=== PATIENT | male | born 1950 | race Caucasian/White ===

== ENCOUNTER → 2018-02-08 11:35 | Outpatient (CLI) | payer MEDICARE, MEDICAID, SELFPAY ==
[2018-02-08 13:24] LABS: Alanine Aminotransferase 41 U/L (12-78); Albumin Level 3.7 gm/dL (3.4-5.0); Albumin/Globulin Ratio 1.3 (1.1-1.8); Alkaline Phosphatase 82 U/L (46-116); Anion Gap 12.6 mEq/L (5-15); Aspartate Amino Transferase 23 U/L (15-37); Bilirubin,Total 0.5 mg/dL (0.2-1.0); Blood Urea Nitrogen 17 mg/dL (7-18); Calcium 9.1 mg/dL (8.5-10.1); Carbon Dioxide 25 mmol/L (21.0-32.0); Chloride 108 mmol/L (98-107); Cholesterol 171 mg/dL (140-200); Creatinine,Serum 1.19 mg/dL (0.70-1.30); Estimated Glomerular Filt Rate 61 ml/min (>60); GFR (African American) 74 ML/MIN (>60); Globulin 2.9 gm/dl (1.3-3.2); Glucose 109 mg/dL (74-106); HDL Cholesterol 34 mg/dL (27-67); LDL Cholesterol 101 mg/dL (0-130); Potassium 4.6 mmoL/L (3.5-5.1); Sodium 141 mmol/L (136-145); Thyroid Stimulating Hormone 4.73 uIU/ml (0.358-3.740); Total Protein,Serum 6.6 gm/dL (6.4-8.2); Triglycerides 179 mg/dL (30-200); VLDL Cholesterol 36 mg/dL (0-40)
== END ==
PROVIDERS: Visit Provider Physician Assistant
DX: I25.10 Atherosclerotic heart disease of native coronary artery without angina pectoris (principal); E78.5 Hyperlipidemia, unspecified
CPT/HCPCS: 36415; 80053; 80061; 84443

== ENCOUNTER → 2018-02-17 13:42 | Outpatient (CLI) | payer MEDICARE, MEDICAID, SELFPAY ==
--- NOTE | 2018-02-17 13:51 | CI_ITS ---
Cerebrovascular Exam Indications: 433.10 Occlusion/stenosis of carotid artery without cerebral infarction. IMPRESSIONS 1. The bilateral vertebral arteries are patent with normal antegrade flow. 2. Study suggests 20-49% stenosis involving the right internal carotid artery and the left internal carotid artery. No change from the study of 31-Dec-2016. Carotid duplex study. Complete study and Doppler flow study including spectral analysis, color and daugherty scale imaging. Location: Vascular laboratory. Patient status: Outpatient. Tables: Arterial flow: + +--------+--------+ Location V sys V ed + +--------+--------+ Right CCA - proximal 76.2cm/s 21.2cm/s + +--------+--------+ Right CCA - distal 85.6cm/s 22cm/s + +--------+--------+ Right ECA 94.3cm/s -------- + +--------+--------+ Right ICA - proximal 116cm/s 27.5cm/s + +--------+--------+ Right ICA - mid 105cm/s 36.9cm/s + +--------+--------+ Right ICA - distal 104cm/s 25.9cm/s + +--------+--------+ Right vertebral 68.4cm/s -------- + +--------+--------+ Left CCA - proximal 94.3cm/s 18.9cm/s + +--------+--------+ Left CCA - distal 102cm/s 19.6cm/s + +--------+--------+ Left ECA 78.6cm/s -------- + +--------+--------+ Left ICA - proximal 111cm/s 29.9cm/s + +--------+--------+ Left ICA - mid 95.1cm/s 26.7cm/s + +--------+--------+ Left ICA - distal 114cm/s 33cm/s + +--------+--------+ Left vertebral 66.8cm/s -------- + +--------+--------+ Velocity ratios: + + + + + + Right, V sys Right, V ed Left, V sys Left, V ed + + + + + + Max ICA/dist CCA 1.36 1.68 1.12 1.68 + + + + + + (Report amended ) Electronically signed by: German Morin [id number]
== END ==
PROVIDERS: Family Provider Emergency Medicine; PCP Emergency Medicine; Visit Provider Physician Assistant
DX: I65.23 Occlusion and stenosis of bilateral carotid arteries (principal)
CPT/HCPCS: 93880

== ENCOUNTER → 2018-02-28 09:48 | Outpatient (REF) | payer MEDICARE, MEDICAID, SELFPAY | LOC: LAB 09:48 | PROVIDERS: Visit Provider Emergency Medicine | DX: E78.5 Hyperlipidemia, unspecified (principal); I51.9 Heart disease, unspecified | CPT/HCPCS: 84439; 84443 ==

== ENCOUNTER → 2018-05-22 10:43 | Outpatient (CLI) | payer MEDICARE, MEDICAID, SELFPAY ==
[2018-05-22 11:34] LABS: Alanine Aminotransferase 44 U/L (12-78); Albumin Level 3.8 gm/dL (3.4-5.0); Albumin/Globulin Ratio 1.3 (1.1-1.8); Alkaline Phosphatase 92 U/L (46-116); Anion Gap 14.4 mEq/L (5-15); Aspartate Amino Transferase 21 U/L (15-37); Bilirubin,Total 0.6 mg/dL (0.2-1.0); Blood Urea Nitrogen 18 mg/dL (7-18); Calcium 9.2 mg/dL (8.5-10.1); Carbon Dioxide 23 mmol/L (21.0-32.0); Chloride 108 mmol/L (98-107); Chol/HDL Ratio 4.4 (1-3.5); Cholesterol 155 mg/dL (140-200); Creatinine,Serum 1.14 mg/dL (0.70-1.30); Estimated Glomerular Filt Rate 64 ml/min (>60); GFR (African American) 78 ML/MIN (>60); Glucose 123 mg/dL (74-106); HDL Cholesterol 35 mg/dL (27-67); LDL Cholesterol 88 mg/dL (0-130); Potassium 4.4 mmoL/L (3.5-5.1); Sodium 141 mmol/L (136-145); Total Protein,Serum 6.8 gm/dL (6.4-8.2); Triglycerides 158 mg/dL (30-200); VLDL Cholesterol 32 mg/dL (0-40)
== END ==
PROVIDERS: PCP Emergency Medicine; Visit Provider Physician Assistant
DX: I25.10 Atherosclerotic heart disease of native coronary artery without angina pectoris (principal); E78.5 Hyperlipidemia, unspecified
CPT/HCPCS: 36415; 80053; 80061

== ENCOUNTER → 2019-11-05 14:38 | Outpatient (POV) | payer MEDICARE, MEDICAID, SELFPAY | PROVIDERS: PCP Emergency Medicine; Visit Provider Specialist | DX: G56.03 Carpal tunnel syndrome, bilateral upper limbs (principal); R20.2 Paresthesia of skin | CPT/HCPCS: 95886; 95909 ==

== ENCOUNTER → 2019-11-12 09:56 | Outpatient (CLI) | payer MEDICARE, MEDICAID, SELFPAY ==
--- NOTE | 2019-11-12 10:01 | XR_ITS ---
PROCEDURE: XR WRIST LT MIN 3V CLINICAL INDICATION: wrist pain COMPARISON: No exams were available for comparison FINDINGS: There is no acute fracture or dislocation. Mild osteoarthritis is seen at the trapezio scaphoid joint. Otherwise joint spaces are relatively preserved. A 2 millimeter metallic density foreign body is seen in the dorsal soft tissues projecting adjacent to the proximal base of the 2nd metacarpal. 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 Dictated by: Jesus Vasquez 11/12/2019 11:30 Electronically signed by Jesus Vasquez in [facility] 11/12/2019 11:30
--- NOTE | 2019-11-12 10:01 | XR_ITS ---
PROCEDURE: XR WRIST RT MIN 3V CLINICAL INDICATION: wrist pain COMPARISON: No exams were available for comparison FINDINGS: There is no acute fracture or dislocation. There is mild osteoarthritis greatest at the 1st metacarpal-trapezium and trapezium scaphoid joints. A degenerative subchondral cyst in the scaphoid measures 6.1 millimeters. IMPRESSION: Degenerative findings with no acute bone pathology. Dictated by: Jesus Vasquez 11/12/2019 11:32 Electronically signed by Jesus Vasquez in [facility] 11/12/2019 11:32
== END ==
PROVIDERS: PCP Emergency Medicine; Visit Provider Orthopaedic Surgery
DX: G56.03 Carpal tunnel syndrome, bilateral upper limbs (principal)
CPT/HCPCS: 73110

== ENCOUNTER 2023-01-19 22:42 | Emergency (ER) | payer MEDICARE, MEDICAID, SELFPAY ==
--- NOTE | 2023-01-19 22:43 | ECG_ITS ---
APPROVED REPORT Exam: Resting ECG HR:80 bpm ECG Measurements Heart Rate 80 AXES VA 138 P 73 QRSd 86 QRS 83 QT 366 T 97 QTc 401 Conclusion SINUS RHYTHM SEPTAL MYOCARDIAL INFARCTION , OF INDETERMINATE AGE [40+ ms Q WAVE IN V1/V2] MODERATE T-WAVE ABNORMALITY, CONSIDER LATERAL ISCHEMIA [-0.1+ mV T-WAVE IN I/aVL/V5/V6] ABNORMAL ECG UNCONFIRMED REPORT Electronically signed by : Bob Hi MD 01/20/2023 09:26:09
[2023-01-19 22:49] VITALS: BP 168/85; PULSE 83; RESP 22; TEMP 36.4; O2SAT 97; BMI 32.9
[2023-01-19 22:54] VITALS: BMI 32.9
--- NOTE | 2023-01-19 22:55 | XR_ITS ---
PROCEDURE INFORMATION: Exam: XR Chest Exam date and time: 01/19/2023 11:04 PM Age: 72 years old Clinical indication: Sternal or substernal pain; Prior surgery; Surgery date: 6+ months; Surgery type: Open heart; Additional info: Cp( TECHNIQUE: Imaging protocol: Radiologic exam of the chest. Views: 1 view. Total images: 1 COMPARISON: No relevant prior studies available. FINDINGS: Tubes, catheters and devices: EKG leads are present. Lungs: Poor lung expansion with crowded markings and bibasilar atelectasis. No focal airspace consolidation, vascular congestion or interstitial edema. Pleural spaces: Unremarkable. No pleural effusion. No pneumothorax. Heart/Mediastinum: Unremarkable. No cardiomegaly. No mediastinal widening or hilar enlargement. Bones/joints: Status post median sternotomy. Moderate degenerative changes bilateral AC joints. Other findings: Lordotic positioning. IMPRESSION: 1. No radiographically acute cardiopulmonary process. 2. Poor lung expansion with mild bibasilar atelectasis.
[2023-01-19 23:00] VITALS: BP 129/72; PULSE 78; RESP 13; O2SAT 97
[2023-01-19 23:05] LABS: Basophils # 0.1 K/mm3 (0-0.2); Basophils % 0.8 % (0.1-2.0); Chloride 103 mmol/L (98-107); Eosinophils # 0.2 K/mm3 (0.0-0.4); Eosinophils % 2.4 % (0.1-12.0); Hematocrit 47.3 % (42.0-52.0); Hemoglobin 15.6 g/dL (14.1-18.0); Lymphocytes # 2.6 K/mm3 (0.7-4.5); Lymphocytes % 30.6 % (10-50); Mean Corpuscular HGB Conc 32.9 g/dL (31.8-35.4); Mean Corpuscular Hemoglobin 29.1 pg (27.0-31.2); Mean Corpuscular Volume 88.3 fl (80-94); Mean Platelet Volume 7.4 fl (7.4-10.4); Monocytes # 0.7 K/mm3 (0.1-1.0); Monocytes % 7.9 % (1.7-9.3); Neutrophils % 58.2 % (37.0-80.0); Platelet Count 205 K/mm3 (142-424); Potassium 3.8 mmoL/L (3.5-5.1); Red Blood Count 5.36 M/mm3 (4.60-6.20); Red Cell Distribution Width 14.7 % (11.5-17.5); Sodium 138 mmol/L (136-145); White Blood Count 8.6 K/mm3 (4.8-10.8)
--- NOTE | 2023-01-19 23:07 | PC.NURSE ---
RAD at for CXR
[2023-01-19 23:08] LABS: Blood Urea Nitrogen 15 mg/dl (9-20); Creatinine Clearance Estimated 79 mL/min (50-200); Estimated Glomerular Filt Rate 66 ml/min (>60); Ethyl Alcohol 234 mg/dl (0-10); GFR (African American) 80 ML/MIN (>60)
[2023-01-19 23:09] LABS: Anion Gap 20.8 mEq/L (5-15); Carbon Dioxide 18 mmol/L (22.0-30.0); Glucose 118 mg/dl (74-100)
[2023-01-19 23:21] LABS: Troponin I < 0.01 ng/ml (0.00-0.034)
--- NOTE | 2023-01-19 23:24 | PC.NURSE ---
PT and daughter at BS
--- NOTE | 2023-01-19 23:24 | PC.NURSE ---
pt's and daughter at bedside updated on pt's pending labs and imaging
[2023-01-19 23:31] VITALS: BP 120/62; RESP 13; O2SAT 99
[2023-01-20] VITALS: BP 133/82; RESP 16; O2SAT 96
--- NOTE | 2023-01-20 00:17 | HMH.EDGENADL ---
Discharge Plan Disposition Patient Disposition: Home, Self-Care Condition: Good Prescriptions Prescriptions: No Action metoprolol tartrate 25 mg tablet 25 mg PO BID lisinopril 2.5 mg tablet 2.5 mg PO DAILY aspirin [Adult Low Dose Aspirin] 81 mg tablet,delayed release (DR/EC) 81 mg PO DAILY clopidogrel 75 mg tablet 75 mg PO DAILY atorvastatin 40 mg tablet 40 mg PO PM ezetimibe 10 mg tablet 10 mg PO DAILY Referrals Follow up/Referrals: Anand Nava MD [Primary Care Provider] - See instructions Clinical Impressions Clinical Impression: Chest pain, Acute alcohol intoxication Discharge ED Provider: Wally Johnson General Adult HPI General Chief complaint: Chest Pain Stated complaint: Chest Pain Time Seen by Provider: 01/19/23 22:52 Mode of Arrival: Ambulatory Source of Information: Patient Limitations: No Limitations Description of Symptoms (Recalled from ER Triage Doc. by RN): pt c/o L sided chest pain starting minutes prior to arrival. pt denies radiation of pain. pt is SOA and very anxious. pt states he has had a lot of beer. History of Present Illness HPI narrative: 72yo M presents to the ER secondary to left-sided chest pain that radiates to his left arm. Patient reports a history of CAD s/p quadruple bypass. Patient is clearly altered on initial evaluation and a poor historian. Patient repeatedly states he wants to leave but then states he still having chest pain. Unable to say when the chest pain started exactly. Unable to provide any other pertinent medical history at time of arrival. Related Data Home Medications Medication Instructions Recorded Confirmed aspirin 81 mg tablet,delayed 81 mg PO DAILY Heart disease 02/28/18 01/19/23 release (Adult Low Dose Aspirin) atorvastatin 40 mg tablet 40 mg PO PM High cholesterol 02/28/18 01/19/23 clopidogrel 75 mg tablet 75 mg PO DAILY Blood thinner 02/28/18 01/19/23 ezetimibe 10 mg tablet 10 mg PO DAILY High cholesterol 02/28/18 01/19/23 lisinopril 2.5 mg tablet 2.5 mg PO DAILY high blood 10/22/19 01/19/23 metoprolol tartrate 25 mg tablet 25 mg PO BID High blood pressure 10/22/19 01/19/23 Allergies Allergy/AdvReac Type Severity Reaction Status Date / Time No Known Allergies Allergy Unknown Verified 01/19/23 22:57 PFSH PFSH Disclaimer: The information contained in this section may have been updated after the patient was seen, as this information can be updated by other users. Medical History Hypothyroidism (~03/01/18) Social History Smoking Status: Former smoker alcohol intake: current substance use type: denies use current occupational status: retired Travel in the last 8 weeks: None ROS Obtained: Yes Systems reviewed as appropriate & no additional complaints except as documented Physical Exam General General appearance: alert, anxious and other (Altered) Comment: Smells of alcohol Head Head exam: atraumatic Eye Eye exam: Present miosis ENT ENT exam: Present mucous membranes moist Neck Neck exam: Present trachea midline Chest Chest inspection: Present normal inspection Respiratory Respiratory exam: Present normal lung sounds bilaterally; Absent respiratory distress Cardiovascular Cardiovascular exam: Present regular rate, normal rhythm and normal heart sounds Abdominal Exam Abdominal exam: Present soft and normal bowel sounds; Absent distention or tenderness Neurological Exam Neurological exam: Present alert and other (Altered); Absent oriented X3 Psychiatric Psychiatric exam: Present agitated and anxious Skin Skin exam: Present warm and dry Medical Decision Making Medical Records Medical records reviewed: Yes I reviewed the patient's medical records. Michi Inquiry Pt receiving controlled substance: No Vital Signs: 01/19/23 22:49 01/19/23 23:00 01/19/23 23:31 T
[2023-01-20 00:30] VITALS: BP 132/77; RESP 21; O2SAT 95
--- NOTE | 2023-01-20 00:57 | PC.NURSE ---
Pt resting with eyes closed and audibly snoring
[2023-01-20 01:26] LABS: Troponin I < 0.01 ng/ml (0.00-0.034)
[2023-01-20 01:32] VITALS: BP 125/74; PULSE 71; RESP 16; TEMP 36.6
[2023-01-20 02:24] LABS: Amphetamine/Metha Screen,Urine Negative ng/ml (<1000); Barbiturates Screen,Urine Negative ng/ml (<200)
[2023-01-20 02:25] LABS: Benzodiazepines Screen,Urine Negative ng/ml (<200)
[2023-01-20 02:26] LABS: Cannabinoid Screen,Urine Negative ng/ml (<50); Cocaine Screen,Urine Negative ng/ml (<300)
[2023-01-20 02:27] LABS: Methadone Screen,Urine Negative ng/ml (<300); Phencyclidine Screen,Urine Negative ng/ml (<25)
[2023-01-20 02:29] LABS: Opiate Screen,Urine Negative ng/ml (<300)
== END 2023-01-20 01:41 | disposition home or self-care (01) ==
PROVIDERS: Emergency Provider Family Medicine; PCP Emergency Medicine
DX: R07.9 Chest pain, unspecified (principal); M79.602 Pain in left arm; R06.02 Shortness of breath; I25.10 Atherosclerotic heart disease of native coronary artery without angina pectoris; F10.929 Alcohol use, unspecified with intoxication, unspecified; Z87.891 Personal history of nicotine dependence
CPT/HCPCS: 71045; 80048; 80305; 84484; 85025; 93005; 93041; 96361; 96374; 96375; 99285

== ENCOUNTER → 2023-04-13 23:16 | Outpatient (CLI) | payer MEDICARE, MEDICAID, SELFPAY | PROVIDERS: PCP Nurse Practitioner Family; Visit Provider Nurse Practitioner Family | DX: N39.0 Urinary tract infection, site not specified (principal) | CPT/HCPCS: 87086 ==

== ENCOUNTER → 2023-04-22 09:42 | Outpatient (CLI) | payer MEDICARE, SELFPAY | LOC: RT 09:43 | PROVIDERS: PCP Nurse Practitioner Family; Visit Provider Nurse Practitioner Family | DX: R06.02 Shortness of breath (principal); F17.211 Nicotine dependence, cigarettes, in remission | CPT/HCPCS: 94060; 94618; 94640; 94727; 94729 ==

== ENCOUNTER 2023-08-22 11:10 | Emergency (ER) | payer SELFPAY ==
[2023-08-22] VITALS (14 sets, daily range): BP systolic 116–229; BP diastolic 60–116; PULSE 69–87; RESP 11–25; TEMP 36.4–36.6; O2SAT 93–99; BMI 32.5; BMI 32.4
--- NOTE | 2023-08-22 11:16 | ECG_ITS ---
APPROVED REPORT Exam: Resting ECG HR:89 bpm ECG Measurements Heart Rate 89 AXES MN 109 P 41 QRSd 81 QRS 76 QT 361 T 90 QTc 408 Conclusion SINUS RHYTHM WITH SHORT MN INTERVAL NONSPECIFIC ST & T-WAVE ABNORMALITY BORDERLINE ECG UNCONFIRMED REPORT Electronically signed by : Bob Hi MD 08/22/2023 17:47:01
--- NOTE | 2023-08-22 11:27 | XR_ITS ---
FINAL REPORT CLINICAL HISTORY: RIB PAIN COMPARISON: 01/19/2023 FINDINGS: 2 views of the chest were obtained . The heart is normal in size. Patient is status post median sternotomy. The mediastinum is within normal limits. The lungs are clear. There is no pneumothorax. Osseous structures are unremarkable. IMPRESSION: No acute cardiopulmonary process. Reviewed, Interpreted and Dictated by Kareem Jalloh III, MD Transcribed by Ann Marie Diaz Authenticated and [facility]
--- NOTE | 2023-08-22 11:32 | PC.NURSE ---
DR LICONA AT BEDSIDE
--- NOTE | 2023-08-22 11:35 | ED_ITS ---
Discharge Plan Disposition Patient Disposition: Home, Self-Care Prescriptions Prescriptions: New valacyclovir 1 gram tablet 1,000 mg PO Q8H 10 Days Qty: 30 0RF No Action metoprolol tartrate 25 mg tablet 25 mg PO BID lisinopril 2.5 mg tablet 2.5 mg PO DAILY prednisone 20 mg tablet 20 mg PO BID 5 Days Qty: 10 0RF cyclobenzaprine 10 mg tablet 10 mg PO TID PRN (Reason: muscle spasm) Qty: 60 0RF fluticasone furoate-vilanterol [Breo Ellipta] 100-25 mcg/dose blister with device 1 inh inhalation DAILY Qty: 60 2RF albuterol sulfate 90 mcg/actuation HFA aerosol inhaler 2 puff inhalation Q4-6H PRN (Reason: shortness of breath or wheezing) Qty: 8.5 2RF aspirin [Adult Low Dose Aspirin] 81 mg tablet,delayed release (DR/EC) 81 mg PO DAILY clopidogrel 75 mg tablet 75 mg PO DAILY atorvastatin 40 mg tablet 40 mg PO PM ezetimibe 10 mg tablet 10 mg PO DAILY Referrals Follow up/Referrals: Ramsey Lucero DO [Primary Care Provider] - See instructions Activity Restrictions/Add. Instructions Additional Instructions/Restrictions: Call your family doctor to establish care for this visit to the emergency department and schedule follow-up within 48 hours to ensure improvement. If you have any worsening of your condition or any other concerning signs or symptoms, return to the emergency department or your primary care doctor for further evaluation. If rash appears in that area, begin taking valacyclovir for full 10-day course. Clinical Impressions Clinical Impression: Right-sided chest wall pain Discharge ED Provider: Jose Miranda General Adult HPI General Chief complaint: PAIN Stated complaint: STABBING PAIN UNDER RIGHT RIB AREA Time Seen by Provider: 08/22/23 11:20 Mode of Arrival: Wheelchair Source of Information: Patient Limitations: No Limitations Description of Symptoms (Recalled from ER Triage Doc. by RN): PT REPORTS ONGOING PAIN TO RIGHT RIBS, COUGHED THIS AM, FELT A POP PAIN WORSE THAN BEFORE. History of Present Illness HPI narrative: 73-year-old male history of CAD status post vessel CABG, on aspirin and Plavix, hypertension-Ghazal presenting with right-sided chest wall pain. Patient states that he was getting out of bed about an hour prior to arrival when he sat up, twisted and coughed all at the same time. Patient states that when he sat up, twisted, and coughed, he had immediate pain that was stabbing in his right lower chest wall/abdomen. Was immediately 8-10 out of 10, has not gotten any better or worse since that time. It is stabbing, made worse with direct pressure, made better with lying still. Does not radiate. Not associated with shortness of breath, substernal chest pain, nausea, vomiting, diaphoresis, or any other concerns. Is not taking anything for the pain. Related Data Home Medications Medication Instructions Recorded Confirmed aspirin 81 mg tablet,delayed 81 mg PO DAILY Heart disease 02/28/18 04/13/23 release (Adult Low Dose Aspirin) atorvastatin 40 mg tablet 40 mg PO PM High cholesterol 02/28/18 04/13/23 clopidogrel 75 mg tablet 75 mg PO DAILY Blood thinner 02/28/18 04/13/23 ezetimibe 10 mg tablet 10 mg PO DAILY High cholesterol 02/28/18 04/13/23 lisinopril 2.5 mg tablet 2.5 mg PO DAILY high blood 10/22/19 04/13/23 metoprolol tartrate 25 mg tablet 25 mg PO BID High blood pressure 10/22/19 04/13/23 Previous Rx's Medication Instructions Recorded albuterol sulfate 90 mcg/actuation 2 puff inhalation Q4-6H PRN 04/13/23 aerosol inhaler shortness of breath or wheezing #8.5 grams cyclobenzaprine 10 mg tablet 10 mg PO TID PRN muscle spasm #60 04/13/23 tabs fluticasone furoate 100 1 inh inhalation DAILY #60 ea 04/13/23 mcg-vilanterol 25 mcg/dose inhalation powder (Breo Ellipta) prednisone 20 mg tablet 20 mg PO BID 5 days #10 tabs 04/13/23 valacyclovir 1 gram tablet 1,000 mg PO Q8H 10 days #30 tabs 08/22/23 Allergies Allergy/AdvReac Type Severity Reaction Status Date / Time No Known Allergies Allergy Unknown Verified 04/13/23 13:03 [facility] Disclaimer: The information contained in this section may have been updated after the patient was seen, as this information can be updated by other users. Medical History Hypothyroidism (~03/01/18) Social History Smoking Status: Former smoker alcohol intake: current substance use type: denies use current occupational status: retired Travel in the last 8 weeks: None ROS Obtained: Yes All systems reviewed & no additional complaints except as documented Physical Exam General General appearance: alert and in distress (secondary to pain) Head Head exam: atraumatic and normocephalic Eye Eye exam: Present normal appearance, PERRL and EOMI ENT ENT exam: Present mucous membranes moist Neck Neck exam: Present normal inspection, full ROM and trachea midline Chest Chest inspection: Present tenderness (right lateral/lower chest wall pain overlying ribs) Respiratory Respiratory exam: Present normal lung sounds bilaterally; Absent respiratory distress, wheezes, stridor, accessory muscle use or prolonged expiratory phase Cardiovascular Cardiovascular exam: Present normal rhythm Abdominal Exam Abdominal exam: Present soft; Absent distention, tenderness, guarding, rebound or rigidity Extremities Exam Extremities exam: Absent edema Neurological Exam Neurological exam: Present alert, oriented X3, CN II-XII intact and normal gait; Absent motor sensory deficit Skin Skin exam: Present warm and dry; Absent diaphoresis or erythema Medical Decision Making Medical Records Medical records reviewed: Yes I reviewed the patient's medical records. Michi Inquiry Pt receiving controlled substance: No Michi was queried for this patient: No Vital Signs: 08/22/23 11:11 08/22/23 11:53 08/22/23 11:50 Temperature 97.6 F Temperature Source Oral Pulse Rate 87 Pulse Rate [Apical] 84 Respiratory Rate 20 21 Blood Pressure 229/116 H 154/78 H Blood Pressure [Right Arm] 229/115 H Blood Pressure Mean 100 Blood Pressure Mean [Right Arm] 153 Blood Pressure Source [Right Arm] Automatic Cuff Blood Pressure Position [Right Arm] Sitting 02 Sat by Pulse Oximetry 99 95 Oxygen Delivery Method Room Air Room Air 08/22/23 12:06 08/22/23 12:11 08/22/23 12:31 Temperature Temperature Source Pulse Rate 78 78 73 Pulse Rate [Apical] Respiratory Rate 20 20 23 Blood Pressure 184/73 H 144/67 H 116/68 Blood Pressure [Right Arm] Blood Pressure Mean 110 124 Blood Pressure Mean [Right Arm] Blood Pressure Source [Right Arm] Blood Pressure Position [Right Arm] 02 Sat by Pulse Oximetry 95 95 94 L Oxygen Delivery Method Room Air 08/22/23 13:01 08/22/23 13:30 08/22/23 14:02 Temperature Temperature Source Pulse Rate 73 74 71 Pulse Rate [Apical] Respiratory Rate 20 11 L 20 Blood Pressure 169/81 H 136/67 144/63 H Blood Pressure [Right Arm] Blood Pressure Mean Blood Pressure Mean [Right Arm] Blood Pressure Source [Right Arm] Blood Pressure Position [Right Arm] 02 Sat by Pulse Oximetry 96 93 L 93 L Oxygen Delivery Method Room Air Room Air Room Air Lab Data Lab Results 08/22/23 11:23: WBC 5.6, RBC 5.72, Hgb 17.2, Hct 51.7, MCV 90.5, MCH 30.0, MCHC 33.2, RDW 15.3, Plt Count 164, MPV 7.5, Neut % (Auto) 71.1, Lymph % (Auto) 18.4, [place] % (Auto) 7.2, Eos % (Auto) 2.4, Baso % (Auto) 0.9, Neut # (Auto) 4.0, Lymph # (Auto) 1.0, [place] # (Auto) 0.4, Eos # (Auto) 0.1, Baso # (Auto) 0.1, PT 12.2, INR 1.14 H, APTT 26.5, Sodium 139, Potassium 4.0, Chloride 102, Carbon Dioxide 28, Anion Gap 13.0, BUN 17, Creatinine 1.10, Estimated Creat Clear 77, Estimated GFR 66, Est GFR ( Amer) 80, Glucose 141 H, Calcium 9.3, Total Bilirubin 0.8, AST 42, ALT 36, Alkaline Phosphatase 86, Troponin I < 0.01, Total Protein 7.4, Albumin 4.4, Globulin 3.0, Albumin/Globulin Ratio 1.5 08/22/23 11:23 08/22/23 11:23 Orders (Tests/Meds): ED MEDICATIONS Generic Name Dose Route Start Last Admin Trade Name Freq PRN Reason Stop Dose Admin Sodium Chloride 10 ml 08/22/23 11:33 Sodium Chloride 0.9% 10ml Flush Syringe IV 09/21/23 11:32 NEEDED PRN Maintain IV Site Discontinued Medications Generic Name Dose Route Start Last Admin Trade Name Freq PRN Reason Stop Dose Admin Acetaminophen 1,000 mg 08/22/23 12:28 08/22/23 12:36 Acetaminophen 1,000mg/100ml Vial IV 08/22/23 12:29 1,000 mg ONCE ONE Administration Gabapentin 200 mg 08/22/23 12:28 08/22/23 12:36 Gabapentin 100mg Capsule PO 08/22/23 12:29 200 mg ONCE ONE Administration Hydromorphone HCl 0.5 mg 08/22/23 11:34 08/22/23 11:38 Hydromorphone 2mg/Ml Syringe IV 08/22/23 11:35 0.5 mg ONCE ONE Administration Hydromorphone HCl 0.5 mg 08/22/23 12:28 08/22/23 12:36 Hydromorphone 2mg/Ml Syringe IV 08/22/23 12:29 0.5 mg ONCE ONE Administration Ketorolac Tromethamine 15 mg 08/22/23 12:28 08/22/23 12:36 Ketorolac 30mg/Ml Vial IV 08/22/23 12:29 15 mg ONCE ONE Administration Labetalol HCl 10 mg 08/22/23 11:34 08/22/23 11:53 Labetalol 5mg/Ml 20ml Mdv IV 08/22/23 11:35 Not Given ONCE ONE Labetalol HCl 10 mg 08/22/23 12:00 08/22/23 11:53 Labetalol 20mg/4ml Syringe IV 08/22/23 12:01 10 mg ONCE ONE Administration ORDERS Category Date Time Status CT abdomen pelvis wo con Stat Cat Scan 08/22/23 12:[address] chest wo con Stat Cat Scan 08/22/23 12:28 Completed XR chest 2V Stat Exams 08/22/23 11:27 Completed Complete Blood Count Auto Diff Stat Lab 08/22/23 11:23 Completed Comprehensive Metabolic Panel Stat Lab 08/22/23 11:23 Completed PT INR [Prothrombin Time INR] Stat Lab 08/22/23 11:23 Completed PTT [Activated Partial Thrombo Time] Stat Lab 08/22/23 11:23 Completed Troponin I Q3H Lab 08/22/23 17:30 Ordered Troponin I Stat Lab 08/22/23 11:23 Completed ECG initial [place] Routine Y 08/22/23 11:16 Completed Medical Decision Narrative: 73-year-old male history of CAD status post vessel CABG, on aspirin and Plavix, hypertension-Ghazal presenting with right-sided chest wall pain. Patient states that he was getting out of bed about an hour prior to arrival when he sat up, twisted and coughed all at the same time. Patient states that when he sat up, twisted, and coughed, he had immediate pain that was stabbing in his right lower chest wall/abdomen. Was immediately 8-10 out of 10, has not gotten any better or worse since that time. It is stabbing, made worse with direct pressure, made better with lying still. Does not radiate. Not associated with shortness of breath, substernal chest pain, nausea, vomiting, diaphoresis, or any other concerns. Last bowel movement today, still passing gas, no history of abdominal surgeries. Is not taking anything for the pain. History was obtained via conversation with patient. On arrival, patient hemodynamically stable, alert, oriented x4, appropriate, GCS 15, moving all extremities spontaneously, pupils equal and reactive to light. Full physical exam performed and significant for patient lying on his left side and appears to be in pain. No acute distress. Right-sided chest wall tenderness with palpation of ribs. Patient hypertensive 230/115 Differential includes muscular strain, rib fracture, neuropathic pain, varicella-zoster, hypertensive emergency, ACS, DC, PE, pneumothorax, among others. Patient was given Dilaudid 0.5 mg IV, labetalol 10 mg IV for symptomatic management and correction of underlying abnormalities. Workup independently interpreted and significant for normal CBC. Nonactionable coagulation factors. Chemistry nonactionable, creatinine normal. CT chest, abdomen pelvis without contrast without concern for rib abnormality, pulmonary abnormality, intra-abdominal abnormality to explain patient's pain. See radiology read for full review of final results. Independent interpretation of EKG shows sinus rhythm [address] or T wave changes concerning for acute ischemia. AR, QRS, QT intervals within normal limits. On reevaluation, patient remains uncomfortable, given another 0.5 mg Dilaudid, Toradol, acetaminophen. Given patient presentation, workup, history, this most likely represents acute musculoskeletal strain, likely intercostal. Because patient at baseline without signs or symptoms of clinical decompensation, deemed appropriate for discharge. Results were relayed to patient who voiced understanding and were agreeable to outpatient management and follow up. At the time of discharge the patient was hemodynamically stable, tolerating PO, and mobilizing appropriately. Because patient has history of chickenpox, unable to rule out early shingles rash, so conversation was had with patient regarding meds sent to pharmacy, valacyclovir sent in case of rash appearance. Critical Care Critical Care Time Critical Care Time: No
[2023-08-22 11:36] LABS: Basophils # 0.1 K/mm3 (0-0.2); Basophils % 0.9 % (0.1-2.0); Eosinophils # 0.1 K/mm3 (0.0-0.4); Eosinophils % 2.4 % (0.1-12.0); Hematocrit 51.7 % (42.0-52.0); Hemoglobin 17.2 g/dL (14.1-18.0); Lymphocytes % 18.4 % (10-50); Mean Corpuscular HGB Conc 33.2 g/dL (31.8-35.4); Mean Corpuscular Volume 90.5 fl (80-94); Mean Platelet Volume 7.5 fl (7.4-10.4); Monocytes # 0.4 K/mm3 (0.1-1.0); Monocytes % 7.2 % (1.7-9.3); Neutrophils % 71.1 % (37.0-80.0); Platelet Count 164 K/mm3 (142-424); Red Blood Count 5.72 M/mm3 (4.60-6.20); Red Cell Distribution Width 15.3 % (11.5-17.5); White Blood Count 5.6 K/mm3 (4.8-10.8)
[2023-08-22] MEDS: HYDROMORPHONE 2MG/ML SYRINGE 0.5 MG IV ×2 (11:38→12:36)
[2023-08-22 11:47] LABS: Activated Partial Thrombo Time 26.5 seconds (22.8-30.6); INR 1.14 (0.9-1.1); Prothrombin Time 12.2 seconds (10.1-12.5)
[2023-08-22 11:51] LABS: Chloride 102 mmol/L (98-107); Sodium 139 mmol/L (136-145)
[2023-08-22] MEDS: LABETALOL 20MG/4ML SYRINGE 10 MG IV (11:53)
[2023-08-22 11:54] LABS: Alanine Aminotransferase 36 U/L (12-78); Albumin Level 4.4 g/dl (3.5-5.0); Albumin/Globulin Ratio 1.5 (1.1-1.8); Alkaline Phosphatase 86 U/L (38-126); Aspartate Amino Transferase 42 U/L (17-59); Bilirubin,Total 0.8 mg/dl (0.2-1.3); Blood Urea Nitrogen 17 mg/dl (9-20); Carbon Dioxide 28 mmol/L (22.0-30.0); Creatinine Clearance Estimated 77 mL/min (50-200); Estimated Glomerular Filt Rate 66 ml/min (>60); GFR (African American) 80 ML/MIN (>60); Total Protein,Serum 7.4 g/dl (6.3-8.2)
[2023-08-22 11:55] LABS: Calcium 9.3 mg/dl (8.4-10.2); Glucose 141 mg/dl (74-100)
--- NOTE | 2023-08-22 11:57 | PC.NURSE ---
Pt gone to RAD via wheelchair
--- NOTE | 2023-08-22 12:04 | PC.NURSE ---
Pt back from RAD
[2023-08-22 12:07] LABS: Troponin I < 0.01 ng/ml (0.00-0.034)
--- NOTE | 2023-08-22 12:25 | PC.NURSE ---
DR LICONA AT BEDSIDE TO UPDATE PT
--- NOTE | 2023-08-22 12:28 | CT_ITS ---
FINAL REPORT TECHNIQUE: Axial images were obtained from the lung apex to the mid abdomen by computed tomography. Coronal reformatted images were obtained. This study was performed with techniques to keep radiation doses as low as reasonably achievable, (ALARA). Individualized dose reduction techniques using automated exposure control or adjustment of mA and/or kV according to the patient''s size were employed. CLINICAL HISTORY: concern for R rib fracture vs stone COMPARISON: None FINDINGS: Prior median sternotomy. There is no axillary adenopathy. There is no hilar or mediastinal adenopathy. Heart size is normal. There is no pericardial or pleural effusion. There is a 2 mm right lower lobe nodule seen on image 55. There is mild emphysema and mild scarring. No chest wall abnormality identified. There is no pneumothorax. IMPRESSION: No acute process. No obvious rib fracture. Reviewed, Interpreted and Dictated by Kareem Jalloh III, MD Transcribed by Elly Macias Authenticated and [facility]
--- NOTE | 2023-08-22 12:28 | CT_ITS ---
FINAL REPORT CLINICAL HISTORY: concern for R rib fracture vs stone COMPARISON: None FINDINGS: Axial CT images of the abdomen and pelvis were obtained without intravenous contrast. Coronal reformatted images were also obtained.This study was performed with techniques to keep radiation doses as low as reasonably achievable (ALARA). Individualized dose reduction techniques using automated exposure control or adjustment of mA and/or kV according to the patient's size were employed. Abdomen: There is no evidence of renal stone or hydronephrosis.The liver, spleen and pancreas have an unremarkable, unenhanced appearance. No mass or adenopathy is seen. No inflammatory process is identified. There are moderate vascular calcifications. No obvious rib fracture identified. Pelvis: Images of the pelvis reveal no evidence of ureteral dilation or ureteral stone. There is descending and sigmoid diverticulosis. No mass or abnormal fluid collection is identified. There is an umbilical hernia containing fat. IMPRESSION: No renal or ureteral stone, or hydronephrosis. No obvious rib fracture identified. Reviewed, Interpreted and Dictated by Kareem Jalloh III, MD Transcribed by Elly Macias Authenticated and [facility]
[2023-08-22] MEDS: GABAPENTIN 100MG CAPSULE 200 MG PO (12:36)
[2023-08-22] MEDS: KETOROLAC 30MG/ML VIAL 15 MG IV (12:36)
[2023-08-22] MEDS: ACETAMINOPHEN 1,000MG/100ML VIAL 1000 MG IV (12:36)
--- NOTE | 2023-08-22 12:55 | PC.NURSE ---
PT RETURNED FROM CT
--- NOTE | 2023-08-22 14:15 | PC.NURSE ---
Dr. Miranda at BS to update pt on results and POC
--- NOTE | 2023-08-22 14:37 | PC.NURSE ---
No repeat trop per Dr. Miranda
--- NOTE | 2023-08-22 14:52 | PC.NURSE ---
DR LICONA AT BEDSIDE TO UPDATE PT ON POC FOR DISCHARGE
== END 2023-08-22 15:04 | disposition home or self-care (01) ==
PROVIDERS: Emergency Provider Emergency Medicine; PCP Internal Medicine
DX: R07.89 Other chest pain (principal); I25.10 Atherosclerotic heart disease of native coronary artery without angina pectoris; I10 Essential (primary) hypertension; Z79.02 Long term (current) use of antithrombotics/antiplatelets; Z79.82 Long term (current) use of aspirin; Z87.891 Personal history of nicotine dependence
CPT/HCPCS: 71046; 71250; 74176; 80053; 84484; 85025; 85610; 85730; 93005; 96374; 96375; 96376; 99285; J0131

== ENCOUNTER 2024-09-11 07:47 | Emergency (ER) | payer SELFPAY ==
[2024-09-11] VITALS (7 sets, daily range): BP systolic 120–168; BP diastolic 70–97; PULSE 72–83; RESP 15–18; TEMP 36.6–36.7; O2SAT 93–100; BMI 28.9
--- NOTE | 2024-09-11 08:01 | PC.NURSE ---
DR WYLIE AT BEDSIDE
--- NOTE | 2024-09-11 08:04 | CT_ITS ---
FINAL REPORT TECHNIQUE: Pre-and postcontrast images of the abdomen through the pelvis were performed by computed tomography. Extensive 3-D reconstruction images were performed. A CTA was performed. This study was performed with techniques to keep radiation doses as low as reasonably achievable (ALARA). Individualized dose reduction techniques using automated exposure control or adjustment of mA and/or kV according to the patient's size were employed. CLINICAL HISTORY: EtOH, fall, BT, ABD pain COMPARISON: None FINDINGS: ABDOMEN: The liver is homogeneous. The gallbladder is present. The spleen, pancreas, adrenal glands, and kidneys are unremarkable. There is a small fat-containing umbilical hernia. PELVIS: The appendix is not identified. There is moderate sigmoid diverticulosis without evidence of diverticulitis. The urinary bladder is normal in size and configuration. CTA: The bilateral renal arteries are adequately patent. Dense calcifications are noted at the origin of the celiac axis. Stenosis measures less than 50%. The SMA and JOHNSON are patent. Bilateral iliac artery stents are present. IMPRESSION: No acute abdominopelvic process identified. Reviewed, Interpreted and Dictated by Sahil Locke MD Transcribed by Elly Macias Authenticated and [facility]
--- NOTE | 2024-09-11 08:04 | CT_ITS ---
FINAL REPORT TECHNIQUE: The patient was injected with IV contrast. Axial images were obtained through the chest in a PE protocol. 3-D reconstruction images were also performed. Individualized dose reduction techniques using automated exposure control or adjustment of the MA and/or KV according to patient's size were employed. CLINICAL HISTORY: Right chest pain, prior CABG, fall COMPARISON: CT chest 08/22/2023 FINDINGS: Mediastinal vasculature is adequately opacified. No pulmonary artery filling defects are identified to suggest PE. There is no aortic dissection. There is no axillary adenopathy. There is no hilar or mediastinal adenopathy. There are multiple median sternotomy wires. The heart size is normal. There is no pericardial or pleural effusion. No suspicious infiltrate or nodule is identified. There are moderate changes of centrilobular emphysema. IMPRESSION: No pulmonary embolus or dissection. Reviewed, Interpreted and Dictated by Sahil Locke MD Transcribed by Elly Macias Authenticated and [facility]
--- NOTE | 2024-09-11 08:08 | ED_ITS ---
Discharge Plan Disposition Patient Disposition: Home, Self-Care Condition: Good Prescriptions Prescriptions: New methocarbamol 750 mg tablet 1,500 mg PO Q8H Qty: 30 0RF lidocaine 5 % adhesive patch,medicated See Rx Instructions .ROUTE .COMPLEX Qty: 15 0RF Rx Instructions: leave on most painful area for up to 12 hrs Continued methocarbamol 750 mg tablet 1,500 mg PO TID 5 Days Qty: 30 0RF lidocaine 5 % adhesive patch,medicated 1 patch topical DAILY Qty: 15 0RF Rx Instructions: leave on most painful area for up to 12 hrs No Action metoprolol tartrate 25 mg tablet 25 mg PO BID lisinopril 2.5 mg tablet 2.5 mg PO DAILY prednisone 20 mg tablet 20 mg PO BID 5 Days Qty: 10 0RF cyclobenzaprine 10 mg tablet 10 mg PO TID PRN (Reason: muscle spasm) Qty: 60 0RF fluticasone furoate-vilanterol [Breo Ellipta] 100-25 mcg/dose blister with device 1 inh inhalation DAILY Qty: 60 2RF albuterol sulfate 90 mcg/actuation HFA aerosol inhaler 2 puff inhalation Q4-6H PRN (Reason: shortness of breath or wheezing) Qty: 8.5 2RF aspirin [Adult Low Dose Aspirin] 81 mg tablet,delayed release (DR/EC) 81 mg PO DAILY clopidogrel 75 mg tablet 75 mg PO DAILY atorvastatin 40 mg tablet 40 mg PO PM ezetimibe 10 mg tablet 10 mg PO DAILY valacyclovir 1 gram tablet 1,000 mg PO Q8H 10 Days Qty: 30 0RF Referrals Follow up/Referrals: Ramsey Lucero DO [Primary Care Provider] - See instructions Activity Restrictions/Add. Instructions Additional Instructions/Restrictions: You are found to have a single right sided rib fracture. For the next few days, please alternate Tylenol and ibuprofen every 3 hours, take the Robaxin up to 3 times per day and wear a lidocaine patch for 12 hours a day. Follow-up with your primary care provider in the next 3 days if you require additional pain medication. Use your incentive spirometer 10 times an hour while you are awake. Please return to ED if your symptoms worsen, change in location, change in severity, new symptoms develop or if you become concerned for your health. Clinical Impressions Clinical Impression: Fall (on) (from) other stairs and steps, initial encounter Closed rib fracture Qualifiers: Encounter type: initial encounter Rib fracture type: single rib Laterality: r ight Qualified Code(s): S22.31XA - Fracture of one rib, right side, initial encounter for closed fracture Instructions Patient Instructions: DI for Rib Fracture Print Language Print Language: Ghanaian Discharge ED Provider: Ashlyn Lozano General Adult HPI General Chief complaint: PAIN Stated complaint: shoulder pain Time Seen by Provider: 09/11/24 07:55 Mode of Arrival: Ambulatory Source of Information: Patient Limitations: No Limitations Description of Symptoms (Recalled from ER Triage Doc. by RN): PT REPORTS INCREASED PAIN TO RIGHT CHEST WALL AND UNDER RIGHT SHOULDER BLADE FOR 3-4 DAYS. PAIN WORSE WITH COUGHING, SNEEZING, DEEP BREATHING OR LYING DOWN. NO KNOWN INJURY, HAS NOT TAKEN ANYTHING FOR PAIN. History of Present Illness HPI narrative: Patient is a 74-year-old male presenting with right shoulder/chest pain. Patient states that he has had severe sharp pain under his right ribs and by his right shoulder blade. He states it causes him to stop breathing due to the severe pain. Coughing and taking deep breaths makes it worse. Patient notes history of alcohol abuse and his last alcoholic drink was approximately 2 weeks ago. Patient stopped smoking in 2013 when he had an open heart surgery. Patient states he fell down multiple stairs approximately 2 days before his pain started. Patient has had this chest pain for approximately 4 days. Patient states he takes clopidogrel but is unsure why. Related Data Home Medications ?Medication ?Instructions ?Recorded ?Confirmed aspirin 81 mg tablet,delayed 81 mg PO DAILY Heart disease 02/28/18 04/13/23 release (Adult Low Dose Aspirin) atorvastatin 40 mg tablet 40 mg PO PM High cholesterol 02/28/18 04/13/23 clopidogrel 75 mg tablet 75 mg PO DAILY Blood thinner 02/28/18 04/13/23 ezetimibe 10 mg tablet 10 mg PO DAILY High cholesterol 02/28/18 04/13/23 lisinopril 2.5 mg tablet 2.5 mg PO DAILY high blood 10/22/19 04/13/23 metoprolol tartrate 25 mg tablet 25 mg PO BID High blood pressure 10/22/19 04/13/23 Previous Rx's ?Medication ?Instructions ?Recorded albuterol sulfate 90 mcg/actuation 2 puff inhalation Q4-6H PRN 04/13/23 aerosol inhaler shortness of breath or wheezing #8.5 grams cyclobenzaprine 10 mg tablet 10 mg PO TID PRN muscle spasm #60 04/13/23 tabs fluticasone furoate 100 1 inh inhalation DAILY #60 ea 04/13/23 mcg-vilanterol 25 mcg/dose inhalation powder (Breo Ellipta) prednisone 20 mg tablet 20 mg PO BID 5 days #10 tabs 04/13/23 lidocaine 5 % topical patch 1 patch topical DAILY #15 ea 08/22/23 methocarbamol 750 mg tablet 1,500 mg (2 x 750 mg) PO TID 5 08/22/23 days #30 tabs valacyclovir 1 gram tablet 1,000 mg PO Q8H 10 days #30 tabs 08/22/23 lidocaine 5 % topical patch See Rx Instructions topical 09/11/24 .COMPLEX #15 ea methocarbamol 750 mg tablet 1,500 mg (2 x 750 mg) PO Q8H #30 09/11/24 tabs Allergies Allergy/AdvReac Type Severity Reaction Status Date / Time No Known Allergies Allergy Unknown Verified 04/13/23 13:03 [facility] Disclaimer: The information contained in this section may have been updated after the patient was seen, as this information can be updated by other users. Medical History Hypothyroidism (~03/01/18) Social History Smoking Status: Former smoker alcohol intake: current alcohol intake frequency: 0-2 drinks per day substance use type: denies use current occupational status: retired Travel in the last 8 weeks: None Have you lived/traveled outside US in past 30 days?: No Contact w/someone who lives/traveled outside US past 30 days?: No Exposure to someone with infectious disease in past 14 days?: No Do you have a fever (greater than 100.4 F or 38 C)?: No Have you tested positive for COVID-19: No Exposed to someone with COVID-19 in past 14 days?: No Do you have a sore throat?: No Do you have a cough?: No Do you have any weakness?: No Do you have any diarrhea?: No Are you experiencing any unusual bleeding?: No Do you have any muscle aches/pain?: No Do you have any abdominal pain?: No Are you experiencing loss of taste or smell?: No Other Medical History Have you received the Flu Vaccine for this season: No Have you received the Pneumonia Vaccine: No ROS Obtained: Yes All systems reviewed & no additional complaints except as documented Physical Exam General General appearance: alert and other (in distress secondary to pain) Head Head exam: atraumatic, normocephalic and normal inspection Eye Eye exam: Present normal appearance, PERRL and EOMI Neck Neck exam: Present normal inspection, full ROM and trachea midline; Absent tenderness, meningismus or lymphadenopathy Chest Chest inspection: Present normal inspection, symmetric chest wall rise and tenderness (right lateral chest) Respiratory Respiratory exam: Present normal lung sounds bilaterally; Absent respiratory distress Cardiovascular Cardiovascular exam: Present regular rate and normal rhythm; Absent JVD Abdominal Exam Abdominal exam: Present soft and distention; Absent tenderness or guarding Extremities Exam Extremities exam: Present normal inspection and full ROM Back Exam Back exam: Present normal inspection and tenderness (right scapula) Neurological Exam Neurological exam: Present alert and oriented X3 Psychiatric Psychiatric exam: Present normal affect and normal mood Skin Skin exam: Present warm, dry, intact and normal color Lymphatic Lymphatic Findings: no adenopathy Medical Decision Making Medical Records Medical records reviewed: Yes I reviewed the patient's medical records. Screening: Per USPSTF and CDC recommendations, given the prevalence of disease in our region, it is our hospital?s policy to screen for HIV and viral Hepatitis for all patients aged 18 and over and those with ongoing risk factors. Michi Inquiry Pt receiving controlled substance: No Vital Signs: 09/11/24 07:48 09/11/24 07:52 09/11/24 08:00 Temperature 98.0 F Temperature Source Oral Pulse Rate 76 79 Pulse Rate [Radial] 82 Respiratory Rate 18 Blood Pressure 168/97 H 142/85 H Blood Pressure [Left Arm] 168/97 H Blood Pressure Mean Blood Pressure Mean [Left Arm] 120 Blood Pressure Source [Left Arm] Automatic Cuff Blood Pressure Position [Left Arm] Sitting 02 Sat by Pulse Oximetry 97 100 98 Oxygen Delivery Method Room Air Room Air Room Air 09/11/24 09:00 09/11/24 09:30 09/11/24 10:00 Temperature Temperature Source Pulse Rate 83 72 76 Pulse Rate [Radial] Respiratory Rate Blood Pressure 143/79 H 120/70 129/75 Blood Pressure [Left Arm] Blood Pressure Mean 100 Blood Pressure Mean [Left Arm] Blood Pressure Source [Left Arm] Blood Pressure Position [Left Arm] 02 Sat by Pulse Oximetry 98 93 L 97 Oxygen Delivery Method Room Air Room Air Room Air Lab Data Lab results reviewed: Yes I reviewed the patient's lab results. Lab Results 09/11/24 07:57: WBC 9.4, RBC 5.51, Hgb 15.7, Hct 47.7, MCV 86.6, MCH 28.5, MCHC 32.9, RDW 13.7, Plt Count 218, MPV 8.9, Neut % (Auto) 61.4, Lymph % (Auto) 25.0, Petroleum % (Auto) 10.0 H, Eos % (Auto) 2.7, Baso % (Auto) 0.4, Neut # (Auto) 5.7, Lymph # (Auto) 2.3, Petroleum # (Auto) 0.9, Eos # (Auto) 0.3, Baso # (Auto) 0.0, Sodium 141, Potassium 4.5, Chloride 107, Carbon Dioxide 22, Anion Gap 16.5 H, BUN 17, Creatinine 1.00, Estimated Creat Clear 84, Estimated GFR 73, Est GFR ( Amer) 89, Glucose 128 H, Calcium 9.9, Total Bilirubin 0.6, AST 35, ALT 38, Alkaline Phosphatase 77, Total Protein 7.3, Albumin 4.5, Globulin 2.8, Albumin/Globulin Ratio 1.6, Lipase 106, HCV Ab SAVANNAH w/Rflx PCR Qn Negative, HIV Ag/Ab Combo Qual Negative 09/11/24 07:57 09/11/24 07:57 Orders (Tests/Meds): ED MEDICATIONS Generic Name Dose Route Start Last Admin Trade Name Freq PRN Reason Stop Dose Admin Lidocaine 1 each 09/11/24 10:15 09/11/24 10:19 Lidocaine 5% Transdermal Patch TP 10/11/24 10:14 1 each Q24H HAM Administration Discontinued Medications Generic Name Dose Route Start Last Admin Trade Name Freq PRN Reason Stop Dose Admin Iopamidol 80 ml 09/11/24 08:55 09/11/24 08:56 Iopamidol-370 (76%);100ml Bottle IV 09/11/24 08:56 80 ml ONCE ONE Administration Methocarbamol 1,000 mg 09/11/24 10:13 09/11/24 10:18 Methocarbamol 500mg Tablet PO 09/11/24 10:14 1,000 mg ONCE ONE Administration Morphine Sulfate 4 mg 09/11/24 08:04 09/11/24 08:14 Morphine 4mg/Ml Syringe IV 09/11/24 08:05 4 mg ONCE ONE Administration Ondansetron HCl 4 mg 09/11/24 08:04 09/11/24 08:14 Ondansetron 4mg/2ml Vial IV 09/11/24 08:05 4 mg ONCE ONE Administration Sodium Chloride 50 ml 09/11/24 08:55 09/11/24 08:56 0.9 % Sodium Chloride 50 Ml Vial IV 09/11/24 08:56 40 ml ONCE ONE Administration Sodium Chloride 10 ml 09/11/24 08:55 09/11/24 08:56 Sodium Chloride 0.9% 10ml Syr (Rad Only) IV 09/11/24 08:56 10 ml ONCE ONE Administration ORDERS Category Date Time Status CT angio abdomen pelvis Stat Cat Scan 09/11/24 08:[address] angio chest - dissection Stat Cat Scan 09/11/24 08:[address] cervical spine wo con Stat Cat Scan 09/11/24 08:[address] head/brain wo con Stat Cat Scan 09/11/24 08:08 Completed CBC w/Auto Diff [Complete Blood Count Auto Diff] Stat Lab 09/11/24 07:57 Completed CMP [Comprehensive Metabolic Panel] Stat Lab 09/11/24 07:57 Completed HIV Combo Stat Lab 09/11/24 07:57 Completed Hepatitis C Ab Qual. W/ RFX Stat Lab 09/11/24 07:57 Completed Lipase Stat Lab 09/11/24 07:57 Completed Medical Decision Narrative: In summary, patient is a 74-year-old male presenting with right chest pain. Differential diagnosis includes but is not limited to, rib fracture, pneumothorax, cholecystitis, hepatitis, pancreatitis, AAA, among others. Based on patient's recent fall, alcoholism, concern for rib fractures is high, however to rule out other dangerous etiologies, patient will be evaluated with CBC, CMP, lipase, CT head, CT C-spine, CTA chest/abdomen/pelvis. Will treat patient's symptoms with morphine and Zofran. Lab evaluation negative for leukocytosis, anemia, thrombocytopenia. CMP with no actionable findings. Lipase WNL. Imaging personally reviewed by me and CT head negative for acute hemorrhage or infarct, CTA chest/abdomen/pelvis significant for a right fifth rib fracture and no pneumothorax, emphysema throughout lungs, no abnormalities in vasculature. CT C-spine negative for fracture or malalignment. Given patient's findings, will manage the single closed rib fracture on an outpatient basis. Patient encouraged to continue abstinence from alcohol. Patient advised to alternate Tylenol, ibuprofen, take Robaxin 3 times per day and wear a lidocaine patch over the area of tenderness. Patient educated on incentive spirometer use. Patient also advised to follow-up with his primary care provider next 3 days for reevaluation. Patient in agreement with this plan. Patient stable for discharge at this time. Ashlyn Lozano MD PGY-3, Emergency Medicine Critical Care Critical Care Time Critical Care Time: No
--- NOTE | 2024-09-11 08:08 | CT_ITS ---
FINAL REPORT TECHNIQUE: Axial CT images were performed through the head. Coronal reformatted images were submitted. This study was performed with techniques to keep radiation doses as low as reasonably achievable (ALARA). Individualized dose reduction techniques using automated exposure control or adjustment of mA and/or kV according to the patient's size were employed. CLINICAL HISTORY: Fall downstairs COMPARISON: None FINDINGS: Mild atrophy is noted. Ventricles are proportional to degree of atrophy. There is patchy decreased attenuation in the deep white matter. There is no evidence of hemorrhage. There is no mass or edema identified. There is no abnormal extra-axial fluid seen. There is extensive opacification of the frontal, ethmoid, and maxillary sinuses consistent with extensive changes from chronic pansinusitis. IMPRESSION: No acute intracranial process. Extensive chronic pansinusitis. Reviewed, Interpreted and Dictated by Sahil Locke MD Transcribed by Elly Macias Authenticated and [facility]
--- NOTE | 2024-09-11 08:08 | CT_ITS ---
FINAL REPORT TECHNIQUE: Axial images were obtained of the cervical spine by computed tomography. Coronal and sagittal reconstruction process performed. This study was performed with techniques to keep radiation doses as low as reasonably achievable (ALARA). Individualized dose reduction techniques using automated exposure control or adjustment of mA and/or kV according to the patient''s size were employed. CLINICAL HISTORY: Fall down multiple stairs COMPARISON: None FINDINGS: There is moderate disc space narrowing at C4-5, C5-6, and C6-7. Cervical vertebrae show normal height. There is no malalignment. The facets are properly aligned. On the parasagittal images, neuroforaminal narrowing is particularly evident on the right at C4-5 and on the left at C6-7. No fractures are identified. IMPRESSION: No fracture. Reviewed, Interpreted and Dictated by Sahil Locke MD Transcribed by Elly Macias Authenticated and [facility]
[2024-09-11 08:13] LABS: Basophils % 0.4 % (0.1-2.0); Eosinophils # 0.3 K/mm3 (0.0-0.4); Eosinophils % 2.7 % (0.1-12.0); Hematocrit 47.7 % (42.0-52.0); Hemoglobin 15.7 g/dL (14.1-18.0); Lymphocytes # 2.3 K/mm3 (0.7-4.5); Mean Corpuscular HGB Conc 32.9 g/dL (31.8-35.4); Mean Corpuscular Hemoglobin 28.5 pg (27.0-31.2); Mean Corpuscular Volume 86.6 fl (80-94); Mean Platelet Volume 8.9 fl (7.4-10.4); Monocytes # 0.9 K/mm3 (0.1-1.0); Neutrophils # 5.7 K/mm3 (1.8-7.8); Neutrophils % 61.4 % (37.0-80.0); Platelet Count 218 K/mm3 (142-424); Red Blood Count 5.51 M/mm3 (4.60-6.20); Red Cell Distribution Width 13.7 % (11.5-17.5); White Blood Count 9.4 K/mm3 (4.8-10.8)
[2024-09-11] MEDS: ONDANSETRON 4MG/2ML VIAL 4 MG IV (08:14)
[2024-09-11] MEDS: MORPHINE 4MG/ML SYRINGE 4 MG IV (08:14)
[2024-09-11 08:19] LABS: Alanine Aminotransferase 38 U/L (12-78); Albumin Level 4.5 g/dl (3.5-5.0); Albumin/Globulin Ratio 1.6 (1.1-1.8); Alkaline Phosphatase 77 U/L (38-126); Anion Gap 16.5 mEq/L (5-15); Aspartate Amino Transferase 35 U/L (17-59); Bilirubin,Total 0.6 mg/dl (0.2-1.3); Blood Urea Nitrogen 17 mg/dl (9-20); Calcium 9.9 mg/dl (8.4-10.2); Carbon Dioxide 22 mmol/L (22.0-30.0); Chloride 107 mmol/L (98-107); Creatinine Clearance Estimated 84 mL/min (50-200); Estimated Glomerular Filt Rate 73 ml/min (>60); GFR (African American) 89 ML/MIN (>60); Globulin 2.8 g/dL (1.3-3.2); Glucose 128 mg/dl (74-100); Lipase 106 U/L (23-300); Potassium 4.5 mmoL/L (3.5-5.1); Sodium 141 mmol/L (136-145); Total Protein,Serum 7.3 g/dl (6.3-8.2)
--- NOTE | 2024-09-11 08:28 | PC.NURSE ---
PT TO CT
--- NOTE | 2024-09-11 08:55 | PC.NURSE ---
PT RETURNED FROM CT, NO NEEDS AT THIS TIME
[2024-09-11] MEDS: SODIUM CHLORIDE 0.9% 10ML SYR (RAD ONLY) 10 ML IV (08:56)
[2024-09-11] MEDS: 0.9 % SODIUM CHLORIDE 50 ML VIAL IV (08:56)
[2024-09-11] MEDS: IOPAMIDOL-370 (76%);100ML BOTTLE 80 ML IV (08:56)
--- NOTE | 2024-09-11 09:10 | PC.NURSE ---
PT PROVIDED WATER, CALL LIGHT WITHIN REACH. NO FURTHER NEEDS AT THIS TIME
[2024-09-11 10:07] LABS: HIV Combo NEGATIVE (Negative)
--- NOTE | 2024-09-11 10:12 | PC.NURSE ---
PT AMBULATORY TO BR WITHOUT DIFFICULTY
[2024-09-11 10:15] LABS: Hepatitis C Ab Qual. W/ RFX NEGATIVE (Negative)
[2024-09-11] MEDS: METHOCARBAMOL 500MG TABLET 1000 MG PO (10:18)
[2024-09-11] MEDS: LIDOCAINE 5% TRANSDERMAL PATCH 1 EACH TP (10:19)
== END 2024-09-11 10:35 | disposition home or self-care (01) ==
PROVIDERS: Emergency Provider Student in an Organized Health Care Education/Training Program; PCP Internal Medicine
DX: R07.89 Other chest pain (principal); M25.511 Pain in right shoulder; S22.31XA Fracture of one rib, right side, initial encounter for closed fracture; Z87.891 Personal history of nicotine dependence; W10.9XXA Fall (on) (from) unspecified stairs and steps, initial encounter; Y93.89 Activity, other specified; Y92.9 Unspecified place or not applicable
CPT/HCPCS: 70450; 71275; 72125; 74174; 80053; 83690; 85025; 86803; 87389; 96374; 96375; 99285; J2270; J2405; Q9967

== ENCOUNTER 2025-08-06 15:47 | Emergency (ER) | payer SELFPAY ==
[2025-08-06] VITALS (21 sets, daily range): BP systolic 144–225; BP diastolic 63–111; PULSE 64–89; RESP 13–33; TEMP 37.1; O2SAT 91–99; BMI 32.5
--- NOTE | 2025-08-06 15:54 | ECG_ITS ---
APPROVED REPORT Exam: Resting ECG HR:75 bpm ECG Measurements Heart Rate 75 AXES AL 109 P 58 QRSd 92 QRS 85 QT 396 T 82 QTc 425 Conclusion Normal sinus rhythm without acute ST or T wave changes concerning for ischemia Electronically signed by : Evelyn Mckenzie, 08/07/2025 01:04:58
--- OUTSIDE RECORDS SUMMARY | 2025-08-06 15:54 | XMS_ITS | Clinical Summary ---
Author Organization [facility] Address [address] [place] [address] Care Team Providers Care Glass Curvature Gauger Name Role Phone Anand Nava MD Primary Care Provider [phone] Allergies No known active allergies Medications lisinopril (PRINIVIL,ZESTRI L) 2.5 MG tablet Take by mouth. 09/26/2015 Active clopidogrel (PLAVIX) 75 MG tablet Take by mouth. 09/26/2015 Active metoprolol tartrate (LOPRESSOR) 25 MG tablet Take by mouth. 09/26/2015 Active atorvastatin (LIPITOR) 40 MG tablet Take by mouth. 09/26/2015 Active aspirin 325 MG tablet Take 325 mg by mouth daily. 1/2 tablet daily 09/26/2015 Active pantoprazole (PROTONIX) 40 MG EC tablet 01/03/2016 Active montelukast (SINGULAIR) 10 MG tablet 01/13/2016 Active Active Problems Problem Noted Date Diagnosed Date Carotid stenosis 01/17/2016 Numbness of upper extremity 01/17/2016 Dizziness 01/17/2016 Social History Tobacco Use Types Packs/Day Years Used Date Smoking Tobacco: Former Cigarettes 1.5 54 1 960 - 2013 Smokeless Tobacco: Never Alcohol Use Standard Drinks/Week Comments Yes 6 (1 standard drink = 0.6 oz pur e alcohol) A night Abuse Screen Answer Date Recorded Unsafe at Home or Work/School Not on file Feels Threatened by Someone? Not on file 06/2023 Does Anyone Keep You from Co ntacting Others or Doint Things Outside the Home? Not on file 05/25/2023 Physical Sign of Abuse Present Not on file 1 Housing Stability Answer Date Recorded Current Living Arrangements Not on file 05/15 Potentially Unsafe Housing Conditions Not on ahmet e 05/25/2023 Family and Community Support Answer Kurt e Recorded Help with Day-to-Day Activities Not on file 05/25/2023 Lonely or Isolated Not on file 05/25/2023 Employment Answer Date Recorded Do you want help finding or keeping work or a patrick b? Not on file 05/25/2023 Disabilities Answer Date Recorded Concentrating, Remembering, or Making Decisions Difficulty Not on file 05/25/2023 Doing Errands Independently Difficulty Not on fi le 05/25/2023 Education Answer Date Recorded Help with school or training? Not on file Preferred Language Not on file 05/25/2023 Sex and Gender Information Value Date Recorded Sex Assigned at Not on file Legal Sex Male 2:43 PM EST Gender Identity Not on file Sexual Orientation Not on file Occupation Industry Job Start Date Job End Date Disabled Not on file Not on file Not on file Last Filed Vital Signs Vital Sign Reading Time Taken Comments Blood Pressure 130/64 01/16/2016 9:05 AM EDT Pulse 65 01/16/2016 9:05 AM EDT Temperature - - Respiratory Rate - - Oxygen Saturation 99% 01/16/2016 9:05 AM EDT Inhaled Oxygen Concentration - - Weight 85.7 kg (189 lb) 01/16/2016 9:05 AM EDT Height 165.1 cm (5' 5 ) 01/16/2016 9:05 AM EDT Body Mass Index 31.45 01/16/2016 9:05 AM EDT Plan of Treatment Health Maintenance Due Date Last Done Comments ANNUAL PHYSICAL 1950 HEPATITIS C SCREENING 1950 TDAP/TD VACCINES (1 - Tdap) 1971 COLOGUARD 1997 COLON CANCER SCREENING 5 YEAR SIGMOIDOSCOPY 1997 COLONOSCOPY 1997 [address] CANCER SCREENING 1997 CT COLONOGRAPHY 1997 FECAL OCCULT BLOOD TEST 1997 FIT Testing (1 year) 1997 Pneumococcal Vaccine 50+ (1 of 1 - PCV) 2002 ZOSTER VACCINE (1 of 2) 2002 AAA SCREEN ONCE 2017 INFLUENZA VACCINE 03/15/2025 COVID-19 Vaccine ( season) 2025 Insurance [facility] MEDICAID Care Teams Glass Curvature Gauger Relationship Specialty Start Date End Date Anand Nava MD [address] [place] [facility] [address] ATTN: DEXTER MOCTEZUMA [id number] PCP - General 06/20/15
--- OUTSIDE RECORDS SUMMARY | 2025-08-06 15:54 | XMS_ITS | Referral Summary ---
Author Organization [employer] ([place], [place], [place], [place], [place]) Address [address] [place] [address] Care Team Providers Care Tiller Man Name Role Phone Anand Nava MD Primary Care Provider [phone] Allergies No known active allergies Medications aspirin 81 MG EC tablet Take 1 tablet (81 mg total) by mouth daily. Active clopidogreL (PLAVIX) 75 mg tabletIndications:A SCVD (arteriosclerotic cardiovascular disease) Take 1 tablet by mouth once daily 90 tablet 3 5 Active ezetimibe (ZETIA) 10 mg tabletIndications:D yslipidemia Take 1 tablet by mouth once daily 90 tablet 3 5 Active lisinopriL (ZESTRIL) 2.5 MG tabletIndications:P rimary hypertension Take 1 tablet by mouth once daily 90 tablet 3 5 Active atorvastatin (LIPITOR) 40 MG tabletIndications:D yslipidemia Take 1 tablet by mouth nightly 90 tablet 3 5 Active metoprolol tartrate (LOPRESSOR) 25 MG tabletIndications:B enign essential hypertension Take 1 tablet by mouth twice daily 180 tablet 2 5 Active Active Problems Problem Noted Date Diagnosed Date Encounter for general adult medical examination without abnormal findings 10/18/2022 Arteriosclerosis of coronary artery 09/18/2020 Intermittent claudication 09/18/2020 Peripheral arterial disease 09/18/2020 Carotid stenosis 01/17/2016 ASCVD (arteriosclerotic cardiovascular disease) Benign essential hypertension Dyslipidemia Hx of CABG Former smoker PAD (peripheral artery disease) Carotid stenosis, asymptomatic Social History Tobacco Use Types Packs/Day Years Used Date Smoking Tobacco: Former Cigarettes Smokeless Tobacco: Never Alcohol Use Standard Drinks/Week Comments Yes 0 (1 standard drink = 0.6 oz pur e alcohol) Family and Community Support Answer Kurt e Recorded Help with Day to Day Activities Not on file 09/02/2023 Feeling Lonely or Isolated Not on file 09/02 Educational Attainment Answer Date Chip rded Speak language other than Croatian at home Not on file 09/02/2023 Want help with school or training Not on file 09/02/2023 Substance Use Answer Date Recorded Used prescription meds for non-medical reasons N ot on file 09/02/2023 Used illegal drugs past 12 months Not on file 09/02/2023 Sex and Gender Information Value Date Recorded Sex Assigned at Not on file Legal Sex Male 4:37 PM CDT Gender Identity Not on file Sexual Orientation Not on file Occupation Industry Job Start Date Job End Date Retired Not on file Not on file Not on file Last Filed Vital Signs Vital Sign Reading Time Taken Comments Blood Pressure 130/70 12/14/2024 1:40 PM EDT Pulse 85 12/14/2024 1:40 PM EDT Temperature - - Respiratory Rate - - Oxygen Saturation - - Inhaled Oxygen Concentration - - Weight 91.5 kg (201 lb 12.8 oz) 12/14/2024 1:40 PM EDT Height 165.1 cm (5' 5 ) 12/14/2024 1:40 PM EDT Body Mass Index 33.58 12/14/2024 1:40 PM EDT Plan of Treatment Not on file Insurance [place] [address] MEDICARE PART B ONLY Care Teams Tiller Man Relationship Specialty Start Date End Date Anand Nava MD [address] [place] [address] PCP - General Family Medicine 10/18/22
--- OUTSIDE RECORDS SUMMARY | 2025-08-06 15:54 | XMS_ITS | Clinical Summary ---
Author Organization [facility] Address [address] [place] [address] Care Team Providers Care Maths Tutor Name Role Phone Anand Nava MD Primary Care Provider [phone] Social History Tobacco Use Types Packs/Day Years Used Date Smoking Tobacco: Former Alcohol Use Standard Drinks/Week Comments Yes 0 (1 standard drink = 0.6 oz pure alcohol) Alcoholic Drinks/day: Social alcohol use Sex and Gender Information Value Date Recorded Sex Assigned at Not on file Legal Sex Male 8:22 PM EDT Gender Identity Not on file Sexual Orientation Not on file Last Filed Vital Signs Vital Sign Reading Time Taken Comments Blood Pressure - - Pulse - - Temperature - - Respiratory Rate - - Oxygen Saturation - - Inhaled Oxygen Concentration - - Weight 83 kg (183 lb 0.1 oz) 09/10/2015 1:45 PM EST Height 167.6 cm (5' 6 ) 09/10/2015 1:45 PM EST Body Mass Index 29.54 09/10/2015 1:45 PM EST Plan of Treatment Not on file Care Teams Maths Tutor Relationship Specialty Start Date End Date Anand Nava MD [address] [place] [address] PCP - General 12/26/20
--- OUTSIDE RECORDS SUMMARY | 2025-08-06 15:54 | XMS_ITS | Clinical Summary ---
Author Organization [employer] ([place], [place], [place], [place], [place]) Address [address] [place] [address] Care Team Providers Care Pot Pusher Name Role Phone Anand Nava MD Primary Care Provider [phone] Allergies No known active allergies Medications aspirin [...] PAD (peripheral artery disease) Carotid stenosis, asymptomatic Family History Medical History Relation Name Comments Heart disease Father Heart disease Mother Relation Name Status Comments Father Mother Social History Tobacco Use Types Packs/Day Years [...] Date Chip rded Speak language other than British at home Not on file 09/02/2023 Want [...] 12/14/2024 1:40 PM EDT Plan of Treatment Health Maintenance Due Date Last Done Comments CT Colonography 1952 Colonoscopy 1952 Colorectal Cancer Screening 1952 FOBT/FIT 1952 Fit-DNA (Cologuard) 1952 Sigmoidoscopy 1952 Depression Screening (12+) 1964 Hepatitis C Screening 1970 Pneumococcal 50+ years (1 of 2 - PCV) 1971 Shingles Vaccine (Zoster) (1 of 2) 2002 DTAP/TDAP/TD VACCINES (2 - Td or Tdap) 10/22/2006 Respiratory Syncytial Virus (RSV) Adult or (1 - Risk 60-74 years 1-dose series) 2012 Abdominal Aortic Aneurysm (AAA) Screen 2017 Falls Risk Screening 08/15/2024 COVID-19 VACCINE (2024- season) 2025, 04/16/2021 Influenza Vaccine (#1) 2025 Tobacco Cessation Counseling and Screening (12+) 12/14/2025 12/14/2024 Insurance [facility] MEDICARE PART B ONLY Care Teams Pot Pusher Relationship Specialty Start Date End Date Anand Nava MD [address] [place] [address] [place] [id number] PCP - General Family Medicine 10/18/22
--- NOTE | 2025-08-06 16:08 | CT_ITS ---
PROCEDURE INFORMATION: Exam: CTA Neck With Contrast Exam date and time: 08/06/2025 5:15 PM Age: 75 years old Clinical indication: Vertigo; Additional info: Vertigo, nystagmus, eval for cerebellar stroke TECHNIQUE: Imaging protocol: Computed tomographic angiography of the neck with contrast. Exam focused on the cervical segments of the vasculature. 3D rendering (Not supervised by radiologist): MIP and/or 3D reconstructed images were created by the technologist. Radiation optimization: All CT scans at this facility use at least one of these dose optimization techniques: automated exposure control; mA and/or kV adjustment per patient size (includes targeted exams where dose is matched to clinical indication); or iterative reconstruction. Contrast material: ISOVUE 370; Contrast volume: 80 ml; Contrast route: INTRAVENOUS (IV); COMPARISON: CT ANGIO NECK 08/06/2025 5:15 PM FINDINGS: Right common carotid artery: Moderate to severe atherosclerotic changes of the right carotid bifurcation with less than 60% stenosis of the internal carotid artery per NASCET criteria. Right internal carotid artery: No stenosis of the extracranial segment. No dissection or occlusion. Right external carotid artery: No occlusion or stenosis of the origin. Left common carotid artery: Moderate to severe atherosclerotic changes of the left carotid bifurcation with 50% stenosis of the internal carotid artery per NASCET criteria. Left internal carotid artery: No stenosis of the extracranial segment. No dissection or occlusion. Left external carotid artery: No occlusion or stenosis of the origin. Right vertebral artery: No stenosis. No dissection or occlusion. Left vertebral artery: There is mild stenosis of the left vertebral artery as it enters the dura. Aorta: The aorta demonstrates severe atherosclerotic disease. Soft tissues: Normal. No significant soft tissue swelling. Bones/joints: Status post median sternotomy and coronary artery bypass. Lungs: Moderate to severe centrilobular emphysema. IMPRESSION: 1. Moderate to severe atherosclerotic changes of the right carotid bifurcation with less than 60% stenosis of the internal carotid artery per NASCET criteria. 2. Moderate to severe atherosclerotic changes of the left carotid bifurcation with 50% stenosis of the internal carotid artery per NASCET criteria. REFERENCES: NASCET CRITERIA. The degree of stenosis in the cervical segment of the internal carotid artery is based on NASCET criteria. Normal is no stenosis. Mild is less than 50% stenosis. Moderate is 50-69% stenosis. Severe is 70% to 99% stenosis. Total occlusion is no detectable patent lumen.
--- NOTE | 2025-08-06 16:08 | CT_ITS ---
PROCEDURE INFORMATION: Exam: CTA Head With Contrast, Arteriography Exam date and time: 08/06/2025 5:15 PM Age: 75 years old Clinical indication: Vertigo; Additional info: Vertigo, nystagmus, eval for cerebellar stroke TECHNIQUE: Imaging protocol: Computed tomographic angiography of the head with contrast. Exam focused on the arteries. 3D rendering (Not supervised by radiologist): MIP and/or 3D reconstructed images were created by the technologist. Radiation optimization: All CT scans at this facility use at least one of these dose optimization techniques: automated exposure control; mA and/or kV adjustment per patient size (includes targeted exams where dose is matched to clinical indication); or iterative reconstruction. Contrast material: ISOVUE 370; Contrast volume: 80 ml; Contrast route: INTRAVENOUS (IV); COMPARISON: CT HEAD/BRAIN WO CON 08/06/2025 5:14 PM FINDINGS: ANTERIOR CIRCULATION: Right internal carotid artery: Intracranial segment is patent with no significant stenosis. No aneurysm. Right middle cerebral artery: No occlusion or significant stenosis. No aneurysm. Right anterior cerebral artery: No occlusion or significant stenosis. No aneurysm. Left internal carotid artery: Intracranial segment is patent with no significant stenosis. No aneurysm. Left middle cerebral artery: No occlusion or significant stenosis. No aneurysm. Left anterior cerebral artery: No occlusion or significant stenosis. No aneurysm. POSTERIOR CIRCULATION: Right vertebral artery: No occlusion or significant stenosis. No aneurysm. Left vertebral artery: Mild stenosis of the left vertebral artery as it enters the dura. Basilar artery: No occlusion or significant stenosis. No aneurysm. Right posterior cerebral artery: No occlusion or significant stenosis. No aneurysm. Left posterior cerebral artery: No occlusion or significant stenosis. No aneurysm. Brain: Mild chronic brain volume loss and chronic small vessel ischemic changes. Cerebral ventricles: No ventriculomegaly. Paranasal sinuses: Secretions fill the paranasal sinuses. Bones/joints: Unremarkable. No acute fracture. Soft tissues: Unremarkable. IMPRESSION: 1. No significant intracranial arterial abnormality. 2. Secretions fill the paranasal sinuses. Please exclude acute sinusitis.
--- NOTE | 2025-08-06 16:08 | CT_ITS ---
PROCEDURE INFORMATION: Exam: CT Head Without Contrast Exam date and time: 08/06/2025 5:14 PM Age: 75 years old Clinical indication: Dizziness; Additional info: Vertigo, nystagmus, eval for cerebellar stroke TECHNIQUE: Imaging protocol: Computed tomography of the head without contrast. Radiation optimization: All CT scans at this facility use at least one of these dose optimization techniques: automated exposure control; mA and/or kV adjustment per patient size (includes targeted exams where dose is matched to clinical indication); or iterative reconstruction. COMPARISON: CT HEAD/BRAIN WO CON 09/11/2024 8:39 AM FINDINGS: Brain: Mild chronic brain volume loss and [id number] chronic small vessel ischemic changes. Cerebral ventricles: No ventriculomegaly. Paranasal sinuses: Secretions filling the paranasal sinuses. Mastoid air cells: Visualized mastoid air cells are well aerated. Orbital cavities: Metallic body in the right orbit. Bones: Unremarkable. No acute fracture. Soft tissues: Unremarkable. IMPRESSION: 1. No acute intracranial findings. If there is high clinical concern for acute infarction, consider MRI for further evaluation. 2. Secretions filling the paranasal sinuses. Please correlate for chronic versus acute sinusitis. ASSESSMENT: ASPECTS score ([place]stance Stroke Program Early CT Score) is 10.
--- NOTE | 2025-08-06 16:08 | PC.NURSE ---
FSBS 178 Aware
[2025-08-06 16:15] LABS: Hematocrit 47.3 % (42.0-52.0); Hemoglobin 16.3 g/dL (14.1-18.0); Immature Granulocytes % 0.4 %; Mean Corpuscular HGB Conc 34.5 g/dL (31.8-35.4); Mean Corpuscular Hemoglobin 29.9 pg (27.0-31.2); Mean Corpuscular Volume 86.8 fl (80-94); Nucleated Red Blood Cells % 0 %; Platelet Count 238 K/mm3 (142-424); Red Blood Count 5.45 M/mm3 (4.60-6.20); Red Cell Distribution Width-SD 40.8 fL; White Blood Count 7.2 K/mm3 (4.8-10.8)
--- NOTE | 2025-08-06 16:15 | HMH.EDGENADL ---
Discharge Plan Disposition Patient Disposition: Home, Self-Care Condition: Good Prescriptions Prescriptions: New meclizine 25 mg tablet 25 mg PO QID Qty: 120 0RF No Action metoprolol tartrate 25 mg tablet 25 mg PO BID lisinopril 2.5 mg tablet 2.5 mg PO DAILY prednisone 20 mg tablet 20 mg PO BID 5 Days Qty: 10 0RF cyclobenzaprine 10 mg tablet 10 mg PO TID PRN (Reason: muscle spasm) Qty: 60 0RF fluticasone furoate-vilanterol [Breo Ellipta] 100-25 mcg/dose blister with device 1 inh inhalation DAILY Qty: 60 2RF albuterol sulfate 90 mcg/actuation HFA aerosol inhaler 2 puff inhalation Q4-6H PRN (Reason: shortness of breath or wheezing) Qty: 8.5 2RF aspirin [Adult Low Dose Aspirin] 81 mg tablet,delayed release (DR/EC) 81 mg PO DAILY clopidogrel 75 mg tablet 75 mg PO DAILY atorvastatin 40 mg tablet 40 mg PO PM ezetimibe 10 mg tablet 10 mg PO DAILY valacyclovir 1 gram tablet 1,000 mg PO Q8H 10 Days Qty: 30 0RF methocarbamol 750 mg tablet 1,500 mg PO TID 5 Days Qty: 30 0RF lidocaine 5 % adhesive patch,medicated 1 patch topical DAILY Qty: 15 0RF Rx Instructions: leave on most painful area for up to 12 hrs methocarbamol 750 mg tablet 1,500 mg PO Q8H Qty: 30 0RF lidocaine 5 % adhesive patch,medicated See Rx Instructions .ROUTE .COMPLEX Qty: 15 0RF Rx Instructions: leave on most painful area for up to 12 hrs Referrals Follow up/Referrals: Ramsey Lucero DO [Non-Staff, Internal Medicine] - See instructions Activity Restrictions/Add. Instructions Additional Instructions/Restrictions: You can take the meclizine up to 4 times a day for your symptoms. I will send you instructions on how to use the Farnaz maneuver at home. Return to the emergency department if your symptoms return, if you are unable to ambulate or have any other neurologic symptoms. Otherwise follow-up with your primary care provider. Follow the right ear instructions. Clinical Impressions Clinical Impression: Vertigo, Benign paroxysmal positional vertigo Print Language Print Language: [place] Discharge ED Provider: Evelyn Mckenzie Adult HPI General Chief complaint: Dizziness Stated complaint: HBP,Dizziness Time Seen by Provider: 08/06/25 15:52 Mode of Arrival: Ambulatory Source of Information: Patient, Spouse and Relative Description of Symptoms (Recalled from ER Triage Doc. by RN): patient presents for SOA, dizziness, high blood pressure , and head feeling water logged for approximately 2 weeks. it has progressed the last few days. patient had hx of x4 bypass. patient reports drinking daily, but not in the last 2 days. he typically drinks a 6 pack a day . History of Present Illness HPI narrative: Patient is a 75-year-old gentleman who presents to the emergency department feeling lightheaded, patient states that his symptoms have been present for the last week or 2 but got significantly worse over the last couple days. Patient states that today he felt unbalanced on his feet which is what brought him here. Patient states that they called their family friend who is a nurse and they said to check his blood pressure which was elevated. Patient denies a headache. Patient states that he feels like objects are moving around him and that when he looks at the TV objects are bouncing around. Patient denies any double vision. Patient states that he has not fallen or had any syncopal episodes. Patient denies any chest pain. Patient denies any abdominal pain vomiting or diarrhea. Patient does have high blood pressure states that he took his medications today. Patient states that he does drink daily alcohol about a sixpack a day. Patient states that he has not drink alcohol in the last couple days. Patient states that he does not have a history of alcohol withdrawal seizures and he has stopped drinking multiple times in the past. Patient denies any other drug use. Patient denies any history of strokes. Related Data Home Medications ?Medication ?Instructions ?Recorded ?Confirmed aspirin 81 mg tablet,delayed 81 mg PO DAILY Heart disease 02/28/18 04/13/23 release (Adult Low Dose Aspirin) atorvastatin 40 mg tablet 40 mg PO PM High cholesterol 02/28/18 04/13/23 clopidogrel 75 mg tablet 75 mg PO DAILY Blood thinner 02/28/18 04/13/23 ezetimibe 10 mg tablet 10 mg PO DAILY High cholesterol 02/28/18 04/13/23 lisinopril 2.5 mg tablet 2.5 mg PO DAILY high blood 10/22/19 04/13/23 metoprolol tartrate 25 mg tablet 25 mg PO BID High blood pressure 10/22/19 04/13/23 Previous Rx's ?Medication ?Instructions ?Recorded albuterol sulfate 90 mcg/actuation 2 puff inhalation Q4-6H PRN 04/13/23 aerosol inhaler shortness of breath or wheezing #8.5 grams cyclobenzaprine 10 mg tablet 10 mg PO TID PRN muscle spasm #60 04/13/23 tabs fluticasone furoate 100 1 inh inhalation DAILY #60 ea 04/13/23 mcg-vilanterol 25 mcg/dose inhalation powder (Breo Ellipta) prednisone 20 mg tablet 20 mg PO BID 5 days #10 tabs 04/13/23 lidocaine 5 % topical patch 1 patch topical DAILY #15 ea 08/22/23 methocarbamol 750 mg tablet 1,500 mg (2 x 750 mg) PO TID 5 08/22/23 days #30 tabs valacyclovir 1 gram tablet 1,000 mg PO Q8H 10 days #30 tabs 08/22/23 lidocaine 5 % topical patch See Rx Instructions topical 09/11/24 .COMPLEX #15 ea methocarbamol 750 mg tablet 1,500 mg (2 x 750 mg) PO Q8H #30 09/11/24 tabs meclizine 25 mg tablet 25 mg PO QID #120 tabs 08/06/25 Allergies Allergy/AdvReac Type Severity Reaction Status Date / Time No Known Allergies Allergy Unknown Verified 04/13/23 13:03 [facility] Disclaimer: The information contained in this section may have been updated after the patient was seen, as this information can be updated by other users. Medical History Hypothyroidism (~03/01/18) Social History Smoking Status: Never smoker alcohol intake: current alcohol intake frequency: 0-2 drinks per day substance use type: denies use current occupational status: retired Travel in the last 8 weeks?: None Have you lived/traveled outside [place] in past 30 days?: No Contact w/someone who lives/traveled outside US past 30 days?: No Exposure to someone with infectious disease in past 14 days?: No Do you have a fever (greater than 100.4 F or 38 C)?: No Have you tested positive for COVID-19?: No Exposed to someone with COVID-19 in past 14 days?: No Do you have a sore throat?: No Do you have a cough?: No Do you have any weakness?: No Do you have any diarrhea?: No Are you experiencing any unusual bleeding?: No Do you have any muscle aches/pain?: No Do you have any abdominal pain?: No Are you experiencing loss of taste or smell?: No Other Medical History Have you received the Flu Vaccine for this season: No Have you received the Pneumonia Vaccine: No ROS Obtained: Yes All systems reviewed & no additional complaints except as documented and Yes Systems reviewed as appropriate & no additional complaints except as documented Physical Exam General General appearance: alert and in no apparent distress Head Head exam: atraumatic, normocephalic and normal inspection Eye Eye exam: Present normal appearance, PERRL and EOMI; Absent scleral icterus ENT ENT exam: Present normal exam and normal external ear exam Neck Neck exam: Present normal inspection and full ROM Chest Chest inspection: Present normal inspection and symmetric chest wall rise Respiratory Respiratory exam: Present normal lung sounds bilaterally; Absent respiratory distress or wheezes Cardiovascular Cardiovascular exam: Present regular rate, normal rhythm and normal heart sounds Abdominal Exam Abdominal exam: Present soft and distention; Absent tenderness, guarding or rebound Extremities Exam Extremities exam: Present normal inspection and full ROM Back Exam Back exam: Present normal inspection and full ROM Neurological Exam Neurological exam: Present alert, oriented X3, CN II-XII intact and normal gait (ataxic, appears unsteady on his feet, 2+ beat horizontal nystagmus to the right); Absent motor sensory deficit or reflexes normal Psychiatric Psychiatric exam: Present normal affect and normal mood Skin Skin exam: Present warm and dry Medical Decision Making Medical Records Screening: Per USPSTF and CDC recommendations, given the prevalence of disease in our region, it is our hospital?s policy to screen for HIV and viral Hepatitis for all patients aged 18 and over and those with ongoing risk factors. Michi Inquiry Pt receiving controlled substance: No Vital Signs: 08/06/25 15:53 08/06/25 15:59 08/06/25 16:01 Temperature Temperature Source Pulse Rate 79 89 81 Pulse Rate [Right Radial] Respiratory Rate 33 H 24 20 Blood Pressure 225/109 H 176/101 H 203/98 H Blood Pressure [Right Arm] Blood Pressure Mean Blood Pressure Mean [Right Arm] Blood Pressure Source Blood Pressure Source [Right Arm] Blood Pressure Position Blood Pressure Position [Right Arm] 02 Sat by Pulse Oximetry 99 99 94 L Oxygen Delivery Method 08/06/25 16:03 08/06/25 16:18 08/06/25 16:23 Temperature 98.7 F Temperature Source Oral Pulse Rate 80 Pulse Rate [Right Radial] 81 Respiratory Rate 20 20 Blood Pressure 203/98 H 191/101 H Blood Pressure [Right Arm] 225/109 H Blood Pressure Mean Blood Pressure Mean [Right Arm] 147 Blood Pressure Source Blood Pressure Source [Right Arm] Automatic Cuff Blood Pressure Position Blood Pressure Position [Right Arm] Sitting 02 Sat by Pulse Oximetry 99 93 L Oxygen Delivery Method Room Air Room Air 08/06/25 16:26 08/06/25 16:30 08/06/25 16:45 Temperature Temperature Source Pulse Rate 77 80 79 Pulse Rate [Right Radial] Respiratory Rate 14 17 13 Blood Pressure 187/80 H 185/81 H 191/111 H Blood Pressure [Right Arm] Blood Pressure Mean Blood Pressure Mean [Right Arm] Blood Pressure Source Blood Pressure Source [Right Arm] Blood Pressure Position Blood Pressure Position [Right Arm] 02 Sat by Pulse Oximetry 93 L 94 L 91 L Oxygen Delivery Method Room Air Room Air Room Air 08/06/25 17:01 08/06/25 17:23 08/06/25 17:30 Temperature Temperature Source Pulse Rate 69 71 68 Pulse Rate [Right Radial] Respiratory Rate 21 22 Blood Pressure 144/63 H 165/73 H 164/70 H Blood Pressure [Right Arm] Blood Pressure Mean Blood Pressure Mean [Right Arm] Blood Pressure Source Blood Pressure Source [Right Arm] Blood Pressure Position Blood Pressure Position [Right Arm] 02 Sat by Pulse Oximetry 94 L 97 96 Oxygen Delivery Method Room Air Room Air Room Air 08/06/25 18:00 08/06/25 18:30 08/06/25 18:45 Temperature Temperature Source Pulse Rate 64 Pulse Rate [Right Radial] Respiratory Rate 20 19 16 Blood Pressure 146/66 H 155/84 H Blood Pressure [Right Arm] Blood Pressure Mean Blood Pressure Mean [Right Arm] Blood Pressure Source Blood Pressure Source [Right Arm] Blood Pressure Position Blood Pressure Position [Right Arm] 02 Sat by Pulse Oximetry 96 Oxygen Delivery Method 08/06/25 19:00 08/06/25 19:30 08/06/25 19:45 Temperature Temperature Source Pulse Rate 65 65 66 Pulse Rate [Right Radial] Respiratory Rate 20 19 17 Blood Pressure 161/75 H 159/72 H Blood Pressure [Right Arm] Blood Pressure Mean 106 101 Blood Pressure Mean [Right Arm] Blood Pressure Source Blood Pressure Source [Right Arm] Blood Pressure Position Blood Pressure Position [Right Arm] 02 Sat by Pulse Oximetry 96 96 98 Oxygen Delivery Method Room Air Room Air Room Air 08/06/25 20:00 08/06/25 20:15 08/06/25 20:39 Temperature 98.7 F Temperature Source Pulse Rate 65 Pulse Rate [Right Radial] Respiratory Rate 22 16 Blood Pressure 149/77 H 149/77 H Blood Pressure [Right Arm] Blood Pressure Mean 101 Blood Pressure Mean [Right Arm] Blood Pressure Source Automatic Cuff Blood Pressure Source [Right Arm] Blood Pressure Position Sitting Blood Pressure Position [Right Arm] 02 Sat by Pulse Oximetry Oxygen Delivery Method Room Air Lab Data Lab results reviewed: Yes I reviewed the patient's lab results. Lab Results 08/06/25 16:00: WBC 7.2, RBC 5.45, Hgb 16.3, Hct 47.3, MCV 86.8, MCH 29.9, MCHC 34.5, RDW 13.1, Plt Count 238, MPV 8.9, Neut % (Auto) 68.1, Lymph % (Auto) 21.2, Dickenson % (Auto) 8.0, Eos % (Auto) 1.7, Baso % (Auto) 0.6, Neut # (Auto) 4.9, Lymph # (Auto) 1.5, Dickenson # (Auto) 0.6, Eos # (Auto) 0.1, Baso # (Auto) 0.0, PT 12.6 H, INR 1.15 H, APTT 24.2, VBG pH 7.40, VBG pCO2 36.1, VBG pO2 46.0 H, VBG HCO3 21.6 L, VBG Total CO2 22.7 L, VBG O2 Saturation 82.1 H, VBG Base Excess -3.3 L, VBG Lactic Acid 3.0 H, Sodium 140, Potassium 4.0, Chloride 107, Carbon Dioxide 21 L, Anion Gap 16.0 H, BUN 17, Creatinine 1.20, Estimated Creat Clear 69, Estimated GFR 59, Est GFR ( Amer) 72, Glucose 179 H, Calcium 10.6 H, Phosphorus 3.5, Magnesium 1.8, Total Bilirubin 0.6, AST 37, ALT 45, Alkaline Phosphatase 91, Troponin I < 0.01, Total Protein 7.5, Albumin 4.7, Globulin 2.8, Albumin/Globulin Ratio 1.7, Triglycerides 314 H, Cholesterol 165, LDL Cholesterol Direct 100.18, VLDL Cholesterol 63 H, HDL Cholesterol 36 L, Cholesterol/HDL Ratio 4.6 H, Lipase 87 08/06/25 16:00: Lipase 100, Vitamin B12 860, Plasma/Serum Alcohol < 10 08/06/25 18:30: Urine Color Yellow, Urine Appearance Clear, Urine pH 5.5, Ur Specific [place] 1.020, Urine Protein Trace, Urine Glucose (UA) Negative, Urine Ketones Negative, Urine Blood Trace-i, Urine Nitrate Negative, Urine Bilirubin Negative, Urine Urobilinogen 0.2, Ur Leukocyte Esterase Negative, Urine RBC None, Urine WBC None, Ur Squamous Epith Cells None, Urine Bacteria None, Urine Opiates Screen Negative, Urine Methadone Screen Negative, Ur Barbituates Screen Negative, Ur Phencyclidine Scrn Negative, Ur Amphetamines Screen Negative, U Benzodiazepines Scrn Negative, Urine Cocaine Screen Negative, U Marijuana (THC) Screen Negative 08/06/25 19:36: Troponin I < 0.01 08/06/25 16:00 08/06/25 16:00 Orders (Tests/Meds): ED MEDICATIONS Discontinued Medications Generic Name Dose Route Start Last Admin Trade Name Cesar PRN Reason Stop Dose Admin Diazepam 5 mg 08/06/25 16:08 08/06/25 16:18 Diazepam 10mg/2ml Syringe IV 08/06/25 16:09 5 mg ONCE ONE Administration Folic Acid 1 mg 08/06/25 16:31 08/06/25 16:43 Folic Acid 1mg Tablet PO 08/06/25 16:32 1 mg ONCE ONE Administration Sodium Chloride 1,000 mls @ 999 mls/hr 08/06/25 16:08 08/06/25 19:30 Sod Chlor 0.9% 1000ml Bag IV 08/06/25 17:08 Infused .Q1H1M ONE Infusion Iopamidol 80 ml 08/06/25 17:15 08/06/25 17:16 Iopamidol-370 (76%);100ml Bottle IV 08/06/25 17:16 80 ml ONCE ONE Administration Labetalol HCl 10 mg 08/06/25 16:11 08/06/25 16:18 Labetalol 20mg/4ml Syringe IV 08/06/25 16:12 10 mg ONCE ONE Administration Meclizine HCl 50 mg 08/06/25 18:42 08/06/25 19:16 Meclizine 25mg Tablet PO 08/06/25 18:43 50 mg ONCE ONE Administration Multivitamins 1 each 08/06/25 16:31 08/06/25 19:46 Multivitamin Tablet PO 08/06/25 16:32 Not Given 1700 ONE Sodium Chloride 10 ml 08/06/25 17:15 08/06/25 17:16 Sodium Chloride 0.9% 10ml Syr (Rad Only) IV 09/05/25 17:14 10 ml NEEDED PRN Administration Maintain IV Site Sodium Chloride 50 ml 08/06/25 17:15 08/06/25 17:16 0.9 % Sodium Chloride 50 Ml Vial IV 08/06/25 17:16 50 ml ONCE ONE Administration Thiamine HCl 100 mg 08/06/25 16:31 08/06/25 16:43 Thiamine 100mg Tablet PO 08/06/25 16:32 100 mg ONCE ONE Administration ORDERS Category Date Time Status CT angio head Stat Cat Scan 08/06/25 16:[address] angio neck Stat Cat Scan 08/06/25 16:[address] head/brain wo con Stat Cat Scan 08/06/25 16:08 Completed CBC w/Auto Diff [Complete Blood Count Auto Diff] Stat Lab 08/06/25 16:00 Completed CMP [Comprehensive Metabolic Panel] Stat Lab 08/06/25 16:00 Completed Drug Screen,Urine Stat Lab 08/06/25 18:30 Completed Ethyl Alcohol Stat Lab 08/06/25 16:00 Completed Lipase Stat Lab 08/06/25 16:00 Completed Lipase Stat Lab 08/06/25 16:00 Completed Lipid Panel Stat Lab 08/06/25 16:00 Completed Magnesium Stat Lab 08/06/25 16:00 Completed PT/PTT Stat Lab 08/06/25 16:00 Completed Phosphorous Stat Lab 08/06/25 16:00 Completed Prothrombin Time INR Stat Lab 08/06/25 16:00 Completed Trop I [Troponin I] Stat Lab 08/06/25 16:00 Completed Troponin I Q3H Lab 08/06/25 19:36 Completed Urinalysis and Microscopic Stat Lab 08/06/25 18:30 Completed Vitamin B1 Stat Lab 08/06/25 16:35 Received Vitamin B12 Stat Lab 08/06/25 16:00 Completed VBG [Venous Blood Gas] Stat RT 08/06/25 16:00 Completed Medical Decision Narrative: Patient is a 75-year-old gentleman who presented to the emergency department with concern for feeling off balance and that things were moving around him. Patient states that his symptoms have been present for couple weeks but worsening over the last couple days. On arrival, patient was hypertensive but vital signs were otherwise unremarkable. Differential includes but not limited to: Cerebellar stroke, intracranial pathology, peripheral vertigo, BPPV, hypertensive emergency, ACS/NC, dehydration, amongst others. Patient's labs were reviewed and interpreted by myself: CBC showed no leukocytosis, hemoglobin was stable. INR was mildly elevated at 1.15. Patient's VBG showed no acidosis mildly elevated lactate at 3. CMP was unremarkable. Troponin was less than 0.01. UA showed no evidence of infection. Urine drug screen negative. Alcohol level normal. On exam, patient had nystagmus horizontally to the right patient had no vertical nystagmus. Patient did have difficulties standing and ambulating as he felt off balance. Patient's neuroexam was otherwise unremarkable. Patient symptoms had been present for more than 24 hours therefore patient was not made a stroke alert. Patient was given IV Valium, IV fluids, 10 of labetalol on arrival for symptomatic management. Patient CT head CTA head and neck showed no acute pathology although there was some stenosis of the right internal carotid artery but not significant in nature. After Valium IV fluids and labetalol, patient's blood pressure did improve and patient was feeling improved. Patient continued to have horizontal nystagmus to the right and symptoms worsened with movement therefore Farnaz maneuver was attempted in the emergency department and patient was given meclizine. After meclizine and the Farnaz maneuver, patient stated that his symptoms were improved. A second Farnaz's maneuver was attempted and at this time, patient was able to ambulate without difficulties and patient's symptoms were significantly improved. At this time, I felt that patient's symptoms were consistent with BPPV. Patient was given a prescription for meclizine, patient was given instructions on how to use the Farnaz maneuver at home and patient was advised to follow-up with their primary care provider. Patient was advised to return to the emergency department for any acute or worsening symptoms. Critical Care Critical Care Time Critical Care Time: No
[2025-08-06] MEDS: LABETALOL 20MG/4ML SYRINGE 10 MG IV (16:18)
[2025-08-06] MEDS: diazePAM 10MG/2ML SYRINGE 5 MG IV (16:18)
[2025-08-06] MEDS: 0.9 % SODIUM CHLORIDE 1000ML 1,000 ML 999 ML IV (16:19)
[2025-08-06 16:21] LABS: Albumin Level 4.7 g/dl (3.5-5.0); Chloride 107 mmol/L (98-107); Potassium 4.0 mmoL/L (3.5-5.1); Sodium 140 mmol/L (136-145)
[2025-08-06 16:23] LABS: Alanine Aminotransferase 45 U/L (12-78); Blood Urea Nitrogen 17 mg/dl (9-20); Cholesterol 165 mg/dl (140-200); Creatinine Clearance Estimated 69 mL/min (50-200); Creatinine,Serum 1.20 mg/dl (0.66-1.25); Estimated Glomerular Filt Rate 59 ml/min (>60); GFR (African American) 72 ML/MIN (>60); HDL Cholesterol 36 mg/dl (40-60); Triglycerides 314 mg/dl (30-150)
[2025-08-06 16:24] LABS: Activated Partial Thrombo Time 24.2 seconds (22.8-30.6); Albumin/Globulin Ratio 1.7 (1.1-1.8); Alkaline Phosphatase 91 U/L (38-126); Anion Gap 16.0 mEq/L (5-15); Aspartate Amino Transferase 37 U/L (17-59); Bilirubin,Total 0.6 mg/dl (0.2-1.3); Calcium 10.6 mg/dl (8.4-10.2); Carbon Dioxide 21 mmol/L (22.0-30.0); Globulin 2.8 g/dL (1.3-3.2); Glucose 179 mg/dl (74-100); INR 1.15 (0.9-1.1); Lipase 87 U/L (23-300); Prothrombin Time 12.6 seconds (10.1-12.5); Total Protein,Serum 7.5 g/dl (6.3-8.2)
[2025-08-06 16:29] LABS: VBG HCO3 21.6 mmol/L (23-30); VBG PCO2 36.1 mmol/L (35-51); VBG PH 7.40 mmol/L (7.31-7.41); VBG PO2 46.0 mmol/L (28-40)
[2025-08-06 16:33] LABS: Lactate Venous 3.0 mmol/L (0.4-2.0)
[2025-08-06 16:38] LABS: Troponin I < 0.01 ng/ml (0.00-0.034)
[2025-08-06 16:41] LABS: Lipase 100 U/L (23-300)
[2025-08-06 16:42] LABS: Magnesium 1.8 mg/dl (1.6-2.3); Phosphorous 3.5 mg/dl (2.5-4.5)
[2025-08-06] MEDS: THIAMINE 100MG TABLET 100 MG PO (16:43)
[2025-08-06] MEDS: FOLIC ACID 1MG TABLET 1 MG PO (16:43)
[2025-08-06] MEDS: SODIUM CHLORIDE 0.9% 10ML SYR (RAD ONLY) 10 ML IV (17:16)
[2025-08-06] MEDS: 0.9 % SODIUM CHLORIDE 50 ML VIAL IV (17:16)
[2025-08-06] MEDS: IOPAMIDOL-370 (76%);100ML BOTTLE 80 ML IV (17:16)
[2025-08-06 17:32] LABS: Vitamin B12 860 pg/mL (239-931)
--- NOTE | 2025-08-06 18:30 | PC.NURSE ---
I rounded on the pt. He asked for an update from the physician. no other needs voiced. call jeff in reach. notified.
[2025-08-06 18:35] LABS: Microscopic, Urine URINE MICROSCOPIC (MICROSCOPIC)
[2025-08-06 18:36] LABS: Bilirubin,Urine Negative (Negative); Color,Urine YELLOW (Yellow); Glucose,Urine (UA) Negative (Negative); Ketones,Urine Negative (Negative); Leukocyte Esterase,Urine Negative (Negative); PH,Urine 5.5 (5.0-8.5); Protein,Urine TRACE (Negative); Specific Gravity, Urine 1.020 (1.005-1.030); Urobilinogen,Urine 0.2 EU/dl (0.2)
[2025-08-06 18:48] LABS: Amphetamine/Metha Screen,Urine Negative ng/ml (<1000)
[2025-08-06 18:49] LABS: Barbiturates Screen,Urine Negative ng/ml (<200); Benzodiazepines Screen,Urine Negative ng/ml (<200)
[2025-08-06 18:51] LABS: Methadone Screen,Urine Negative ng/ml (<300)
[2025-08-06 18:52] LABS: Opiate Screen,Urine Negative ng/ml (<300)
[2025-08-06 18:53] LABS: Phencyclidine Screen,Urine Negative ng/ml (<25)
[2025-08-06] MEDS: MECLIZINE 25MG TABLET 50 MG PO (19:16)
[2025-08-06 20:08] LABS: Troponin I < 0.01 ng/ml (0.00-0.034)
[2025-08-06 20:27] LABS: Reflex Lactic Add Lactic Reflex
== END 2025-08-06 20:40 | disposition home or self-care (01) ==
PROVIDERS: Emergency Provider Student in an Organized Health Care Education/Training Program
DX: H81.10 Benign paroxysmal vertigo, unspecified ear (principal); R26.0 Ataxic gait; R74.02 Elevation of levels of lactic acid dehydrogenase [LDH]; I51.9 Heart disease, unspecified; F10.90 Alcohol use, unspecified, uncomplicated; Z86.79 Personal history of other diseases of the circulatory system; Z95.1 Presence of aortocoronary bypass graft; Z87.891 Personal history of nicotine dependence; I11.0 Hypertensive heart disease with heart failure
CPT/HCPCS: 70450; 70496; 70498; 80053; 80061; 80307; 80320; 81001; 82607; 82803; 83690; 83735; 84100; 84425; 84484; 85025; 85610; 85730; 93005; 96361; 96374; 96375; 99285; J1920; J3360; J7030; Q9967